=== PATIENT | female | born 1995 | race Caucasian/White ===

== ENCOUNTER 2017-02-17 07:30 | Inpatient (IN) | payer BC ==
--- NOTE | 2017-02-14 21:30 | Pre-op HX & Phy Repo 2 SIG ---
DATE OF ADMISSION: 02/17/2017 History of Present Illness: The patient is a 21-year-old female in overall stable health with intractable ulcerative colitis. She developed ulcerative colitis in 2008 at 13 years of age. She has been treated with all the available medications including steroids, which have caused side effects that she could not tolerate, mesalamine and in the past was recommended to have biologics, but has refused because she has been very sensitive to medications. She has had treatment by a shed hand and her last colonoscopy was in 04/2015 revealing the reason for the procedure, history of ulcerative colitis with rectal bleeding and chronic diarrhea and the findings were acute and chronic proctitis. The patient more recently was treated with budesonide, but stopped four months ago because of side effects similar to her previous prednisone. Her current medications include Lialda 1.2 grams four times a day, Bentyl p.r.n. cramping, Rowasa enemas and suppositories. She has been evaluated for surgery including creation of an ileoanal J-pouch, but she does not want a J-pouch reconstruction. She states that she has minimal sphincter control even with formed stool when her colitis has been somewhat controlled. She also wants to avoid a conventional ileostomy requiring that she wear an external appliance at all times. She has been having 10 to 12 stools per day with her flares, which she has repeatedly. She is scheduled to be admitted to undergo proctocolectomy with creation of a Dueñas type of Kock pouch continent ileostomy. She will undergo insertion of a dual lumen PICC line, bowel prep with concomitant intravenous hydration and preoperative intravenous antibiotics started the night before surgery and preoperative subcutaneous heparin. OPERATIONS: None. MEDICATIONS: Lialda, Bentyl, mesalamine enemas and suppositories. ALLERGIES TO MEDICATIONS: None. Review Of Systems: The patient is having regular menstrual periods. She is 0 para 0 AB 0. PHYSICAL EXAMINATION: General: The patient is 5 feet 3 inches and 140 pounds. [place] and will be examined upon arrival and dictated separately. She has recently been seen by a physician where she lives in [place], who has found that other than a mildly elevated white blood cell count of 14,000 and platelet count 505,000 with hemoglobin 13.8, she has no evidence of infection and the mild leukocytosis is likely from her ulcerative colitis. Her examination was satisfactory and she was cleared for having surgery. I have had a full discussion with the patient regarding the nature of her condition, the nature of the surgical options including proctocolectomy with Elin ileostomy, proctocolectomy with Dueñas continent ileostomy or a total colectomy with creation of ileoanal J-pouch, which she has refused. I have discussed the nature of the proctocolectomy with Dueñas pouch surgery including bleeding, infection, injury to adjacent structures or organs, complications that could arise from the Dueñas continent ileostomy requiring additional surgery, including slipped valve and fistula as well as other difficulties with intubation of her pouch or function of her pouch with the stoma. I will have another complete discussion in person when the patient arrives from out of state and all questions will be answered. Dago Mancuso M.D. DR: LISA JOB#: [id number] CC: SACHI
[~2017-02-17] VITALS: Ht 160 cm; Wt 63.5 kg
[2017-02-17 09:20] VITALS: BP 110/78
[2017-02-17] MEDS ORDERED: Heparin 2000 units/Ns 1000ml INJ PRN (10:30)
[2017-02-17] MEDS ORDERED: Lidocaine 1% Plain 30 ml INJ PRN (10:30)
[2017-02-17 10:31] LABS: BASOPHILS % (AUTO) 1.2 % (0.0-2.0); EOSINOPHILS % (AUTO) 2.2 % (0.0-3.0); LYMPHOCYTES % (AUTO) 13.7 % (20.0-45.0); MEAN CORPUSCULAR HEMOGLOBIN 27.8 PG (27.0-31.0); MEAN CORPUSCULAR HGB CONC 33.4 G/DL (32.0-36.0); MEAN CORPUSCULAR VOLUME 83 FL (80-99); MEAN PLATELET VOLUME 7.2 FL (6.5-10.1); MONOCYTES % (AUTO) 5.7 % (1.0-10.0); NEUTROPHILS % (AUTO) 77.2 % (45.0-75.0); PLATELET COUNT 494 K/UL (150-450); RED CELL DISTRIBUTION WIDTH 12.2 % (11.6-14.8); WHITE BLOOD COUNT 12.7 K/UL (4.8-10.8)
--- NOTE | 2017-02-17 10:35 | Anethesia Preoperative Eval ---
Anesthesia Pre-op PMH/ROS General Date of Evaluation: Feb 17, 2017 Time of Evaluation: 11:30 Anesthesiologist: Kaylee ASA Score: ASA 2 Mallampati Score Class I : Soft palate, uvula, fauces, pillars visible Class II: Soft palate, uvula, fauces visible Class III: Soft palate, base of uvula visible Class IV: Only hard plate visible Mallampati Classification: Class II Surgeon: Jamee Diagnosis: Intractible Ulcerative colitis Surgical Procedure: Proctocolectomy with Dueñas pouch Anesthesia History: none Allergies: Coded Allergies: NO KNOWN ALLERGIES (Verified Allergy, Unknown, 02/17/17) Medications: see eMAR Past Medical History Cardiovascular: Denies: HTN, CAD, RI, valve dz, arrhythmia, other Pulmonary: Denies: asthma, COPD, CARIDAD, other Gastrointestinal/Genitourinary: Denies: GERD, CRI, ESRD, other Neurologic/Psychiatric: Denies: dementia, CVA, depression/anxiety, TIA, other Endocrine: Denies: DM, hypothyroidism, steroids, other HEENT: Denies: cataract (L), cataract (R), glaucoma, [place] (L[place] (R), other Hematology/Immune: Denies: anemia, DVT, bleeding disorder, other Musculoskeletal/Integumentary: Denies: OA, RA, DJD, DDD, edema, other PMH Narrative: Ulcerative colitis PSxH Narrative: No prior surgery Anesthesia Pre-op Phys. Exam Physician Exam Constitutional: NAD Neurologic: CN 2-12 intact Cardiovascular: RRR, no M/R/G Respiratory: CTA Gastrointestinal: S/NT/ND Airway Exam Mallampati Score: Class II MO: full ROM: full Teeth: intact Anesthesia Pre-op A/P Labs Hematology Test 02/17/17 10:10 White Blood Count 12.7 K/UL (4.8-10.8) H Red Blood Count 5.00 M/UL (4.20-5.40) Hemoglobin 13.9 G/DL (12.0-16.0) Hematocrit 41.6 % (37.0-47.0) Mean Corpuscular Volume 83 FL (80-99) Mean Corpuscular Hemoglobin 27.8 PG (27.0-31.0) Mean Corpuscular Hemoglobin Concent 33.4 G/DL (32.0-36.0) Red Cell Distribution Width 12.2 % (11.6-14.8) Platelet Count 494 K/UL (150-450) H Mean Platelet Volume 7.2 FL (6.5-10.1) Neutrophils (%) (Auto) 77.2 % (45.0-75.0) H Lymphocytes (%) (Auto) 13.7 % (20.0-45.0) L Monocytes (%) (Auto) 5.7 % (1.0-10.0) Eosinophils (%) (Auto) 2.2 % (0.0-3.0) Basophils (%) (Auto) 1.2 % (0.0-2.0) Coagulation Test 02/17/17 10:10 Prothrombin Time Pending Prothromb Time International Ratio Pending Activated Partial Thromboplast Time Pending Chemistry Test 02/17/17 10:10 Sodium Level Pending Potassium Level Pending Chloride Level Pending Carbon Dioxide Level Pending Blood Urea Nitrogen Pending Creatinine Pending Estimat Glomerular Filtration Rate Pending Glucose Level Pending Calcium Level Pending Total Bilirubin Pending Aspartate Amino Transf (AST/SGOT) Pending Alanine Aminotransferase (ALT/SGPT) Pending Alkaline Phosphatase Pending Total Protein Pending Albumin Pending Globulin Pending Risk Assessment & Plan Assessment: Otherwise healthy female with h/o ulcerative colitis Plan: GETA Status Change Before Surgery: WOLFGANG Stevenson M.D. Feb 17, 2017 10:35
[2017-02-17 10:36] LABS: PROTHROMBIN TIME 10.7 SEC (9.30-11.50)
[2017-02-17 11:01] LABS: ALANINE AMINOTRANSFERASE 5 U/L (3-33); ALBUMIN/GLOBULIN RATIO 1.3 (1.0-2.7); ANION GAP 14 (5-15); ASPARTATE AMINO TRANSFERASE 16 U/L (5-40); CALCIUM 9.7 mg/dL (8.6-10.2); CARBON DIOXIDE 25 mEQ/L (20-30); CHLORIDE 100 mEQ/L (98-107); CREATININE 0.8 mg/dL (0.5-0.9); GLOMERULAR FILTRATION RATE > 60 mL/min (>60); HEMOLYSIS 6; POTASSIUM 3.9 mEQ/L (3.4-4.9); SODIUM 139 mEQ/L (135-145); TOTAL PROTEIN 7.9 g/dL (6.6-8.7)
[2017-02-17] MEDS: Neomycin Sulfate 500mg Tab ORAL SCH ×3 (12:16→20:05)
[2017-02-17] MEDS ORDERED: LORazepam 1mg tab ORAL ONE (12:30)
[2017-02-17 14:24] LABS: APPEARANCE,URINE CLEAR; KETONES,URINE 2+ (NEGATIVE); LEUKOCYTE ESTERASE ,URINE NEGATIVE (NEGATIVE); NITRITE,URINE NEGATIVE (NEGATIVE); PH,URINE 6 (4.5-8.0); PROTEIN,URINE NEGATIVE (NEGATIVE); UROBILINOGEN,URINE NORMAL MG/DL (0.0-1.0)
--- NOTE | 2017-02-17 14:39 | Diagnostic Imaging Report ---
Indication: PICC line placement Comparison: None A single view chest radiograph was obtained. Findings: Left PICC line is in good position. Tip is at the junction of SVC and right atrium. Cardiomediastinal appearance is within normal limits for age. Pulmonary vascularity is appropriate. The diaphragmatic contour is smooth and costophrenic angles are sharp. No pleural effusions are identified. The bones are unremarkable. Impression: PICC line in good position.
[2017-02-17 14:41] LABS: BACTERIA,URINE OCCASIONAL /HPF; RBC,URINE 0-2 /HPF (0 - 2); SQUAMOUS EPITHELIAL CELL,UR OCCASIONAL /LPF (NONE/OCC); WBC,URINE 0-2 /HPF (0 - 2)
--- NOTE | 2017-02-17 14:41 | Diagnostic Imaging Report ---
Indication: tank terminal gauger venous access Findings: After the indications, procedure, risks, complications, and alternatives of the procedure were explained, written informed consent was obtained. The left upper extremity was prepped with alcohol. All elements of maximal sterile barrier technique were followed including usage of a cap, mask, sterile gown, sterile gloves, hand hygiene and a large sterile sheet. Sonographic evaluation of the upper extremity was performed demonstrating a patent and compressible basilic vein. Access was obtained under real-time ultrasound guidance and digital image was saved and archived. An .018 wire was introduced. Needle exchanged for a 5 [place] peel-away sheath. Measurements were obtained. A 5 [place] dual-lumen Power PICC line catheter was cut to 40 cm and introduced over the wire. Peel-away sheath and wire were removed.Catheter was secured to the skin using 2-0 Prolene suture. Both ports aspirate and flush easily. Fluoroscopic Images show distal tip in the superior vena cava. Total fluoroscopic time 0.2 minutes Impression: Successful placement of an upper extremity PICC line catheter
--- NOTE | 2017-02-17 15:44 | General Progress Note ---
Progress Note Progress Note H&P dictated. Full discussion with patient and her mother about the surgery, indications, alternatives, options and risks. All questions answered. PICC line in place + bowel prep and IV hydration WBC lower than 1 month ago Hgb stable 13.9 albumin 4.5 Imp. Intractable Ulcerative Colitis Plan: Proctocolectomy with Dueñas Continent Ileostomy MARIAMA MEJIAS Feb 17, 2017 15:44
[2017-02-17 16:00] VITALS: BP 114/71
[2017-02-17] MEDS: Pantoprazole Inj IVP SCH (16:09)
[2017-02-17] MEDS: D5 1/2NS w/KCl 20mEq 1,000 ML IV SCH (18:20)
[2017-02-17] MEDS: LORazepam 1mg tab ORAL PRN (19:39)
[2017-02-17 20:00] VITALS: BP 112/75
[2017-02-17] MEDS ORDERED: Zolpidem 5mg tab ORAL PRN (21:00)
--- NOTE | 2017-02-17 23:15 | Pre-op HX & Phy Repo 2 SIG ---
DATE OF ADMISSION: 02/17/2017 History: The patient has now [place]. Please see previously dictated history. She states that recently her colitis symptoms have been reduced, which she experiences periodically. She states that she is feeling fairly well for surgery. She had an elevated white blood cell count 14,000 and today decreased to 12,500. PHYSICAL EXAMINATION: General: She is well developed and well nourished, 5 foot 3 inches, approximately 140 pounds. HEENT: Within normal limits. LUNGS: Clear. HEART: Regular rhythm. BREASTS: Without masses. ABDOMEN: Soft without tenderness or organomegaly. PELVIC: Negative per primary care physician recently. RECTAL: No evidence of prolapse or any abnormal condition of the perianal skin. EXTREMITIES: Without edema. Pulses 2+ femoral to pedal bilateral NEUROLOGIC: Physiologic. IMPRESSION: Intractable ulcerative colitis. Plan: Proctocolectomy with creation of a Dueñas type of Kock pouch continent ileostomy. Discussion: I have had a full detailed discussion with the patient and her mother regarding the nature of her condition, the nature of the surgery, indications, alternatives, options, and risks. She is not a candidate for the ileoanal J-pouch and wishes to avoid a conventional ileostomy with external appliance. I have described the nature of the proctocolectomy including all the drainage tubes that are going to be utilized and creation of the Dueñas pouch. I have discussed the risks including the general risks of surgery including bleeding, infection, injury to adjacent structures or organs, scarring, possibility of altered bladder function, a possibility of needing to repair the posterior vaginal wall, deep vein thrombosis despite prophylaxis, etc. I have also discussed the specific risks of the Dueñas continent ileostomy operation including the potential need for subsequent surgical revision for fistula or for slipped valve or for other complications involving the stoma or function of the pouch or intubation. I have answered all questions. The patient's hemoglobin was 13.9. Albumin 4.5. Platelet count slightly elevated at 494,000 and white count 12,700. All other parameters within normal limits. The patient and mother understand and feel I have answered all of their questions and agree to proceed as planned. The patient has undergone insertion of a dual lumen PICC line, will be getting a bowel prep and intravenous hydration. Dago Mancuso M.D. DR: LISA JOB#: [id number] CC: SACHI
[2017-02-18] VITALS (10 sets, daily range): BP systolic 103–120; BP diastolic 57–79
[2017-02-18] MEDS: D5 1/2NS w/KCl 20mEq 1,000 ML IV SCH (04:15)
[2017-02-18] MEDS ORDERED: Heparin 5000 units/ml inj SUBQ ONE (05:30)
[2017-02-18] MEDS: Ampicillin/Sulbactam Sod 3 GM in NS 110 ML IV SCH ×6 (05:31→23:43)
[2017-02-18] MEDS: LORazepam 1mg tab ORAL PRN ×2 (05:41→22:57)
[2017-02-18] MEDS: Dyna-Hex 2% Top Sol 2oz TOPIC SCH (06:18)
--- NOTE | 2017-02-18 06:54 | Pre-Procedure Note/Attestation ---
Pre-Procedure Note/Attestation Complete Prior to Procedure Planned Procedure: not applicable Procedure Narrative: proctocolectomy and creation of Dueñas Continent Ileostomy; gastrostomy Indications for Procedure Pre-Operative Diagnosis: intractable Ulcerative Colitis Attestation I attest that I discussed the nature of the procedure; its benefits; risks and complications; and alternatives (and the risks and benefits of such alternatives ), prior to the procedure, with the patient (or the patient's legal airport representative). I attest that, if there was a reasonable possibility of needing a blood transfusion, the patient (or the patient's legal airport representative) was given the [facility] standardized written summary, pursuant to the [place] Blood Safety Act ([place] Health and Safety Code # 1645, as amended). I attest that I re-evaluated the patient just prior to the surgery and that there has been no change in the patient's H&P, except as documented below:none MARIAMA MEJIAS Feb 18, 2017 06:54
[2017-02-18] MEDS ORDERED: Bacitracin 50000 Units Vial ONE ×2 (07:11→14:39)
[2017-02-18] MEDS ORDERED: NeoSporin Gu Irrig 1ml Amp IRRIG ONE ×2 (07:11→14:39)
[2017-02-18] MEDS ORDERED: Zemuron 50mg/5ml Inj IV ONE ×2 (07:30→07:50)
[2017-02-18] MEDS ORDERED: Morphine Sulfate 10mg/ml Inj ONE (07:30)
[2017-02-18] MEDS ORDERED: Etomidate 40mg/20ml Inj IV ONE (07:30)
[2017-02-18] MEDS ORDERED: Glycopyrrolate 0.2mg/ml 1ml Vial ONE ×2 (07:30→07:50)
[2017-02-18] MEDS ORDERED: Neostigmine 1mg/ml 10ml Inj ONE (07:30)
[2017-02-18] MEDS ORDERED: Midazolam 2mg/2ml Inj ONE (07:50)
[2017-02-18] MEDS ORDERED: fentaNYL 100 mcg/2 mL IV ONE (07:50)
[2017-02-18] MEDS ORDERED: Hydromorphone 0.5mg/0.5ml inj ONE (07:50)
[2017-02-18] MEDS ORDERED: NS Irrig 1000ml ONE (07:50)
[2017-02-18] MEDS ORDERED: Propofol 1,000mg/ 100ml btl IV ONE (07:50)
[2017-02-18] MEDS ORDERED: LR 1000ml ONE (07:50)
[2017-02-18] MEDS ORDERED: Sterile Water Irrig 1000ml IRRIG ONE (07:50)
[2017-02-18] MEDS: Pantoprazole Inj IVP SCH (09:00)
--- NOTE | 2017-02-18 09:13 | Immediate Post-Op Evaluation ---
Immediate Post-Op Evalulation Immediate Post-Op Evalulation Procedure: Proctocolectomy, Dueñas pouch Date of Evaluation: Feb 18, 2017 Time of Evaluation: 14:50 IV Fluids: 5700 Estimated Blood Loss: 700 Urinary Output: 1050 Blood Pressure Systolic: 103 Blood Pressure Diastolic: 57 Pulse Rate: 91 Respiratory Rate: 13 O2 Sat by Pulse Oximetry: 100 Temperature (Fahrenheit): 98.2 Pain Score (1-10): 0 Nausea: No Vomiting: No Complications No complication Patient Status: reacts, patent, extubated, none Hydration Status: adequate Drug: Unasyn & Flagyl Given Within 1 Hr of Incision: Yes Time Given: 07:00 WOLFGANG PORTILLO M.D. Feb 18, 2017 09:13
[2017-02-18] MEDS ORDERED: Surgicel 4in x 8in TOPIC ONE (10:39)
[2017-02-18 10:59] LABS: MEAN CORPUSCULAR HEMOGLOBIN 27.3 PG (27.0-31.0); MEAN CORPUSCULAR HGB CONC 32.7 G/DL (32.0-36.0); MEAN CORPUSCULAR VOLUME 84 FL (80-99); MEAN PLATELET VOLUME 7.1 FL (6.5-10.1); PLATELET COUNT 332 K/UL (150-450)
[2017-02-18 11:06] LABS: WHITE BLOOD COUNT 28.2 K/UL (4.8-10.8)
[2017-02-18 11:46] LABS: BAND NEUTROPHILS % (MANUAL) 7 % (0-8); BASOPHILS % (MANUAL) 0 % (0-2); EOSINOPHILS % (MANUAL) 0 % (0-3); LYMPHOCYTES % (MANUAL) 6 % (20-45); NEUTROPHILS % (MANUAL) 82 % (45-75); PLATELET ESTIMATE ADEQUATE; PLATELET MORPHOLOGY NORMAL; TOTAL CELLS COUNTED 100
[2017-02-18] MEDS ORDERED: Ampicillin/Sulbactam Sod 3 GM in NS 110 ML IV SCH (12:00)
[2017-02-18] MEDS ORDERED: LR 1000ml 1,000 ML IVLG SCH (13:27)
[2017-02-18] MEDS ORDERED: Meperidine 25mg/0.5ml Inj (FOR RIGORS ONLY) IV PRN (13:30)
[2017-02-18] MEDS ORDERED: LORazepam Inj 2mg/ml 1ml IV PRN (13:30)
[2017-02-18] MEDS ORDERED: DiphenhydrAMINE 50mg/ml Inj IVP PRN ×2 (13:30→14:45)
[2017-02-18] MEDS ORDERED: Hydromorphone 0.5mg/0.5ml inj IVP PRN (13:30)
[2017-02-18] MEDS ORDERED: Rate Change PCA 1 Each MISC PRN (14:45)
[2017-02-18] MEDS ORDERED: Naloxone 0.4mg/ml Inj IVP PRN (14:45)
[2017-02-18] MEDS ORDERED: Acetaminophen 650mg/20.3ml GT PRN (14:45)
[2017-02-18] MEDS ORDERED: LORazepam 1mg tab SL PRN ×2 (14:45)
--- NOTE | 2017-02-18 14:49 | Brief Operative Note ---
Immediate Post Operative Note Operative Note Pre-op Diagnosis: intractable Ulcerative Colitis Procedure: proctocolectomy and Dueñas Continent Ileostomy Post-op Diagnosis: same Post-op Diagnosis: same as pre-op Findings: consistent w/pre-op dx studies Surgeon: valerio Recreation Leader: jarrett Anesthesiologist: quynh Specimen: yes - colon, rectum and anus; small bowel trimmings Complications: none Condition: stable Fluids: see anesthesia record Estimated Blood Loss: volume - 700ml Drains: other - BRYANT x 2 to perineum; 28 Menezes to Dueñas pouch; 1/4 inch cadence Implant(s) used?: No MARIAMA MEJIAS Feb 18, 2017 14:49
[2017-02-18] MEDS ORDERED: PCA HYDROmorphone 1mg/ml 30 ML IV PRN (14:55)
[2017-02-18] MEDS ORDERED: PCA Education Pamphlet MISC ONE (15:00)
--- NOTE | 2017-02-18 16:29 | General Progress Note ---
Progress Note Progress Note sleepy but arousable. 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 MARIAMA Isaac Feb 18, 2017 16:29
[2017-02-18] MEDS: D5 1/4NS w/KCl 20mEq 1,000 ML IV SCH (17:17)
[2017-02-18] MEDS: PCA shift volume MISC SCH (19:20)
[2017-02-18] MEDS ORDERED: Metoclopramide 10mg/2ml Inj IVP ONE (20:30)
--- NOTE | 2017-02-19 00:31 | Operative Note - Dictated ---
DATE OF OPERATION: 02/18/2017 SURGEON: Dago Mancuso M.D. HOOP PUNCH OPERATOR HELPER SURGEON: Jarertt Duckworth M.D. ANESTHESIOLOGIST: Armando Page M.D. TYPE OF ANESTHESIA: General endotracheal. PREOPERATIVE DIAGNOSIS: Intractable ulcerative colitis. POSTOPERATIVE DIAGNOSIS: Intractable ulcerative colitis. Operation Performed: Proctocolectomy with creation of a Dueñas type of Kock pouch continent ileostomy. Description Of Procedure: The patient was taken to the operating room and under general endotracheal anesthesia with sequential compression device stockings and Menezes catheter in place, having received preoperative intravenous antibiotics and subcutaneous heparin, the patient was prepped and draped in lithotomy position using Dino stirrups and with a GelPad under the sacrum. A midline incision was made from just above the umbilicus to the pubis, ultimately extended into the midepigastrium. Hemostasis was achieved with cautery. Abdominal evaluation revealed normal liver and collapsed gallbladder without palpable stones. Spleen was normal. Kidneys normal to palpation as was pancreas. Uterus, tubes, and ovaries were within normal limits. The small bowel was abundant and completely normal. The colon showed signs of chronic inflammation from her ulcerative colitis. The colon was mobilized from its attachments starting at the cecum taking down the hepatic and splenic flexures using cautery, some large clips, and silk ties, protecting the duodenum and avoiding ureters and bladder. The omentum was resected with the specimen. The lesser sac was entered to facilitate the dissection. The left colon was mobilized along the line of Toldt and then the terminal ileum was divided with the MAURI stapling device and then the mesentery serially clamped using transillumination ligating with #0 silk, doubly ligating the major vessels proximally. At the rectosigmoid, the bowel was again divided with the MAURI stapling device and then the mesentery divided staying close to the wall of the colon and rectum dissecting in this presacral fascia down to the coccyx. Lateral stalks were divided using clips and ties as appropriate. The peritoneum was incised under the uterus to further mobilize the rectum. Then I went below and with a pursestring suture in the anus and a vertically oriented elliptical incision using cautery for hemostasis, an intersphincteric dissection was performed and the anus and rectum with the remaining colon was removed. The field was irrigated with antibiotic solution. Hemostasis was secured, although with the chronic inflammation, there was significant blood loss. Total blood loss for the surgery 700 mL. No blood replaced. Through separate stab incisions to the right and left side, 19 mm round Marcus drains were placed into the presacral hollow and sutured to the skin with 2-0 silk sutures. Then, the perineum was closed in multiple layers using #0 and 2-0 Vicryl and the skin closed with interrupted 2-0 nylon vertical mattress sutures. A dry sterile dressing was applied and the patient was taken out of lithotomy position carefully protecting the sterile field. Throughout the operation, antibiotic soaked laps were used to protect the abdominal wall and there were frequent changes of gloves and gowns. Now the pelvic peritoneum was closed with continuous 2-0 Vicryl suture again avoiding the ureters. The stapled end of the terminal ileum was imbricated with interrupted 3-0 silk and 12 cm proximal marked for the collar segment. 15cm proximal was marked for the pouch and the 2 adjacent 15 cm long loops of small bowel were placed [id number]. With appropriately located enterotomies and using the MAURI 55 with multiple applications, a stapled ileal reservoir was created. At the junction of the afferent bowel and the pouch, a 2-0 chromic marking suture was placed and 12 cm proximal marked for the valve segment. A 2 fingerbreadth mesenteric hiatus created at this point ligating vessels with 3-0 silk. The abdominal wall thickness measured 4 cm and the appropriate length access segment was measured and marked and the bowel divided with a TA-30 proximally and distally left open to become the new stoma. The mesentery was divided ligating with 3-0 silk. The proximal staple line was imbricated with 3-0 silk. Now attention was directed towards creating the nipple valve. The peritoneum on each side of the valve segment mesentery was stripped and the serosa scarified with cautery. Then with gradual intussusception a 5.5 cm long nipple valve was created. Two applications of the PI 55 stapling device with 4.8 mm william were placed 90 degrees away from the mesentery. 3-0 silk sutures were placed on each side of the access segment to the pouch on each side of its mesentery. A third application of the PI 55 stapling device was placed to staple the valve to the anterior pouch wall. Additional 3-0 silk placed between the access segment and the pouch. The afferent bowel was placed [id number] with the enterotomy in the pouch and a hand-sewn anastomosis was created with a very short blind end, a posterior outer layer with interrupted 3-0 silk, then the afferent bowel opened, and full-thickness locking 2-0 chromic sutures placed posteriorly carried anteriorly as Luis suture. Another layer of 3-0 silk placed over that. A generous 2 fingerbreadth anastomosis was created. Now the end of the collar was brought through the mesenteric hiatus at the junction of the valve and access segment and the collar was sutured to the access segment, to itself and to the pouch with multiple interrupted 3-0 silk. A 28-Tajik Menezes was then introduced through the stoma into the pouch and the afferent bowel manually occluded. The pouch was distended with 120 mL of saline. There was no evidence of any extravasation. Upon removing the catheter, the pouch was continent. The catheter was reintroduced and the pouch decompressed. A Cast suction also passed readily with some constriction from the collar as appropriate. At a previously marked location low in the right lower quadrant, a narrow 2.5 cm long ellipse of skin was excised in transverse orientation and with a cruciate incision in the rectus fascia, a 2-fingerbreadth abdominal wall hiatus was created. The posterior pouch and collar were sutured to the peritoneum with 3-0 Vicryl sutures. The access segment with its mesentery was brought through the abdominal wall and the anterior pouch sutured to the peritoneum with 3-0 Vicryl. The 28-Tajik Menezes was positioned in the pouch into the apex. Now the access segment was placed on stretch and redundancy was excised and the stoma primarily matured with continuous 2-0 chromic locking sutures starting at the 3 and 9 o'clock positions. A very satisfactory stoma was achieved and the access segment was short and taut. The pouch lay nicely in the pelvis and the catheter was positioned appropriately. The catheter was marked at the level of the stoma with a 3-0 silk and then sutured to the skin with 2 sutures of 2-0 silk. It was flushed and connected to a gravity drainage bag. The operative field was carefully inspected throughout the field of dissection and hemostasis was satisfactory. In view of all the dissection and complex operation, I felt decompression with a gastrostomy was indicated. Through a separate stab incision in the left upper quadrant, an 18-Tajik Menezes catheter was brought through the abdominal wall and placed into the stomach anterior wall greater curve between 2 concentric 2-0 chromic pursestring sutures with the balloon inflated and positioned in the stomach and the stomach then sutured to the anterior abdominal wall with multiple interrupted 3-0 silk sutures. The catheter was sutured to the skin with a 2-0 silk and it was then flushed and connected to a gravity drainage bag. The midline incision was then closed in 1 layer with continuous #1 Prolene starting at both ends and inverting the knots. Subcutaneous tissues were again irrigated with antibiotic solution and skin closed with william. Dry sterile dressings were applied. Final sponge and needle counts were correct. The patient tolerated the procedure well and left the operating room in good condition. Dago Mancuso M.D. DR: Eliz JOB#: [id number] CC: SACHI
[2017-02-19 00:32] VITALS: BP 108/64
[2017-02-19] MEDS: D5 1/4NS w/KCl 20mEq 1,000 ML IV SCH ×3 (03:30→16:38)
[2017-02-19 04:25] VITALS: BP 98/63
[2017-02-19] MEDS: Ampicillin/Sulbactam Sod 3 GM in NS 110 ML IV SCH ×3 (05:07→17:02)
[2017-02-19] MEDS: LORazepam 1mg tab ORAL PRN ×4 (05:07→21:39)
[2017-02-19 05:52] LABS: MEAN CORPUSCULAR HEMOGLOBIN 27.9 PG (27.0-31.0); MEAN CORPUSCULAR HGB CONC 33.5 G/DL (32.0-36.0); MEAN CORPUSCULAR VOLUME 83 FL (80-99); MEAN PLATELET VOLUME 6.8 FL (6.5-10.1); PLATELET COUNT 338 K/UL (150-450); RED BLOOD COUNT 3.35 M/UL (4.20-5.40); RED CELL DISTRIBUTION WIDTH 12.2 % (11.6-14.8); WHITE BLOOD COUNT 19.4 K/UL (4.8-10.8)
[2017-02-19 06:23] LABS: ANION GAP 6 (5-15); CALCIUM 7.9 mg/dL (8.6-10.2); CARBON DIOXIDE 28 mEQ/L (20-30); CHLORIDE 99 mEQ/L (98-107); CREATININE 0.6 mg/dL (0.5-0.9); GLOMERULAR FILTRATION RATE > 60 mL/min (>60); HEMOLYSIS 3; SODIUM 133 mEQ/L (135-145)
[2017-02-19 06:39] LABS: HEMOLYSIS 0; IRON 14 ug/dL (37-145); TOTAL IRON BINDING CAPACITY 194 ug/dL (250-400)
[2017-02-19] MEDS: PCA shift volume MISC SCH ×2 (07:00→19:21)
--- NOTE | 2017-02-19 07:01 | 48 Hour Post Anesthesia Eval ---
Post Anesthesia Evaluation Procedure: Proctocolectomy, Dueñas pouch Date of Evaluation: Feb 19, 2017 Time of Evaluation: 06:36 Blood Pressure Systolic: 98 0: 63 Pulse Rate: 116 Respiratory Rate: 17 Temperature (Fahrenheit): 100.8 O2 Sat by Pulse Oximetry: 98 Airway: patent Nausea: No Vomiting: No Pain Intensity: 3 Hydration Status: adequate Cardiopulmonary Status: Stable Mental Status/LOC: patient returned to baseline Follow-up Care/Observations: 0 Post-Anesthesia Complications: 0 Follow-up care needed: N/A Robert Bunch MD Feb 19, 2017 07:01
[2017-02-19 08:00] VITALS: BP 101/63
[2017-02-19] MEDS: Pantoprazole Inj IVP SCH (08:14)
[2017-02-19] MEDS: Dyna-Hex 2% Top Sol 2oz TOPIC SCH (08:19)
--- NOTE | 2017-02-19 08:33 | General Progress Note ---
Progress Note Progress Note Temp 101.8 P 116 c/o pain with movement despite dilaudid INBOUND SALES ADVISOR. chest - decreased expansion cor - reg rhythm Abdomen mildly distended, soft, incision clean, stoma pink. [place] - scant serosang All extremities with normal strength and sensation Perineum incision clean, BRYANT drains intact Overnight 12 hours: urine 1600 Gastrostomy 100 BCIR ileo - scant serosang JPs 100 + 15 WBC 19,400 Hgb 9.3 BUN 3 Cr 0.6 Serum iron 14 (37-145) B12 269 (211-946) Imp. Ileus Atelectasis with fever Anemia with pre-existing low iron and B12 levels Pain Plan: Add Toradol to INBOUND SALES ADVISOR Bedrest today with frequent moving and leg exercising; continue SCDs Venofer 100mg IV daily; B12 1000mcg IM today f/u labs pulmonary toilet MARIAMA MEJIAS Feb 19, 2017 08:33
[2017-02-19] MEDS ORDERED: Ketorolac 30mg Inj IV ONE (08:45)
[2017-02-19] MEDS ORDERED: Naloxone 0.4mg/ml Inj IVP PRN (09:30)
[2017-02-19] MEDS ORDERED: PCA HYDROmorphone 1mg/ml 30 ML IV PRN (09:30)
[2017-02-19] MEDS ORDERED: DiphenhydrAMINE 50mg/ml Inj IVP PRN (09:30)
[2017-02-19] MEDS ORDERED: Rate Change PCA 1 Each MISC PRN (09:30)
[2017-02-19] MEDS ORDERED: Ketorolac 30mg Inj IV PRN (09:45)
[2017-02-19 09:52] LABS: BAND NEUTROPHILS % (MANUAL) 3 % (0-8); BASOPHILS % (MANUAL) 0 % (0-2); EOSINOPHILS % (MANUAL) 0 % (0-3); LYMPHOCYTES % (MANUAL) 10 % (20-45); NEUTROPHILS % (MANUAL) 78 % (45-75); PLATELET ESTIMATE ADEQUATE; PLATELET MORPHOLOGY NORMAL; TOTAL CELLS COUNTED 100
[2017-02-19] MEDS ORDERED: Vitamin B12 1000mcg/ml Inj IM ONE (10:00)
[2017-02-19 12:00] VITALS: BP_SYST 116; BP_SYST 128; BP_DIAS 62; BP_DIAS 65
[2017-02-19 16:00] VITALS: BP 113/63
[2017-02-19] MEDS ORDERED: NS 275ml ONE (17:43)
[2017-02-19] MEDS ORDERED: NS Irrig 1000ml ONE (17:43)
[2017-02-19] MEDS ORDERED: Tubing IV Secondary IV ONE (17:43)
[2017-02-19 20:13] VITALS: BP 101/64
[2017-02-19] MEDS: Iron Sucrose 100 MG in NS 55 ML IV SCH (21:38)
[2017-02-20 00:27] VITALS: BP 102/61
[2017-02-20] MEDS: Metoclopramide 10mg/2ml Inj IVP PRN (01:48)
[2017-02-20] MEDS: D5 1/4NS w/KCl 20mEq 1,000 ML IV SCH ×3 (03:00→18:58)
[2017-02-20 04:00] VITALS: BP 106/79
[2017-02-20 05:27] LABS: BASOPHILS % (AUTO) 0.9 % (0.0-2.0); EOSINOPHILS % (AUTO) 0.7 % (0.0-3.0); LYMPHOCYTES % (AUTO) 9.9 % (20.0-45.0); MEAN CORPUSCULAR HEMOGLOBIN 27.9 PG (27.0-31.0); MEAN CORPUSCULAR HGB CONC 33.2 G/DL (32.0-36.0); MEAN CORPUSCULAR VOLUME 84 FL (80-99); MONOCYTES % (AUTO) 10.5 % (1.0-10.0); PLATELET COUNT 298 K/UL (150-450); RED BLOOD COUNT 3.07 M/UL (4.20-5.40); RED CELL DISTRIBUTION WIDTH 12.8 % (11.6-14.8); WHITE BLOOD COUNT 15.2 K/UL (4.8-10.8)
[2017-02-20 05:30] LABS: ANION GAP 5 (5-15); CARBON DIOXIDE 29 mEQ/L (20-30); CHLORIDE 101 mEQ/L (98-107); CREATININE 0.6 mg/dL (0.5-0.9); GLOMERULAR FILTRATION RATE > 60 mL/min (>60); HEMOLYSIS 0; SODIUM 135 mEQ/L (135-145)
[2017-02-20] MEDS: Ampicillin/Sulbactam Sod 3 GM in NS 110 ML IV SCH ×5 (05:56→17:45)
[2017-02-20] MEDS: PCA shift volume MISC SCH ×2 (07:22→19:00)
[2017-02-20 08:00] VITALS: BP 99/56
--- NOTE | 2017-02-20 08:28 | General Progress Note ---
Progress Note Progress Note Afebrile x 24 hours. Tachycardia decreased. Still c/o occasional hiccups and nausea chest - clear with decreased expansion Abdomen mildly distended, soft, incision clean, stoma pink, cadence-scant Urine 2900 Gastrostomy 285 (bilious) BCIR ileo scant serosang JPs 93+38 WBC down 15,200 Hgb down 8.6 - getting Venofer BMP - wnl Imp. Ileus Atelectasis anemia Plan: d/c basal continuous infusion of UNDERCOLLAR MAKER mobilize/ambulate BID f/u CBC, CMP - may need TPN MARIAMA MEJIAS Feb 20, 2017 08:28
[2017-02-20] MEDS ORDERED: Naloxone 0.4mg/ml Inj IVP PRN (09:00)
[2017-02-20] MEDS ORDERED: DiphenhydrAMINE 50mg/ml Inj IVP PRN (09:00)
[2017-02-20] MEDS ORDERED: Rate Change PCA 1 Each MISC PRN (09:00)
[2017-02-20] MEDS ORDERED: PCA HYDROmorphone 1mg/ml 30 ML IV PRN (09:00)
[2017-02-20] MEDS: Dyna-Hex 2% Top Sol 2oz TOPIC SCH (09:49)
[2017-02-20] MEDS: Pantoprazole Inj IVP SCH (09:50)
[2017-02-20 12:00] VITALS: BP 109/64
[2017-02-20 16:00] VITALS: BP 102/61
[2017-02-20 20:00] VITALS: BP 95/60
[2017-02-20] MEDS: Iron Sucrose 100 MG in NS 55 ML IV SCH (21:04)
[2017-02-21] VITALS: BP 96/61
[2017-02-21] MEDS: Ampicillin/Sulbactam Sod 3 GM in NS 110 ML IV SCH ×4 (00:02→18:19)
[2017-02-21 04:00] VITALS: BP 98/65
[2017-02-21 04:39] LABS: BASOPHILS % (AUTO) 0.9 % (0.0-2.0); EOSINOPHILS % (AUTO) 3.8 % (0.0-3.0); LYMPHOCYTES % (AUTO) 15.1 % (20.0-45.0); MEAN CORPUSCULAR HEMOGLOBIN 27.1 PG (27.0-31.0); MEAN CORPUSCULAR HGB CONC 32.2 G/DL (32.0-36.0); MEAN CORPUSCULAR VOLUME 84 FL (80-99); MEAN PLATELET VOLUME 6.7 FL (6.5-10.1); MONOCYTES % (AUTO) 8.7 % (1.0-10.0); NEUTROPHILS % (AUTO) 71.5 % (45.0-75.0); PLATELET COUNT 361 K/UL (150-450); RED BLOOD COUNT 3.21 M/UL (4.20-5.40); RED CELL DISTRIBUTION WIDTH 12.3 % (11.6-14.8); WHITE BLOOD COUNT 14.4 K/UL (4.8-10.8)
[2017-02-21 05:32] LABS: ALANINE AMINOTRANSFERASE 12 U/L (3-33); ANION GAP 6 (5-15); ASPARTATE AMINO TRANSFERASE 23 U/L (5-40); CALCIUM 8.3 mg/dL (8.6-10.2); CARBON DIOXIDE 29 mEQ/L (20-30); CHLORIDE 102 mEQ/L (98-107); CREATININE 0.5 mg/dL (0.5-0.9); GLOMERULAR FILTRATION RATE > 60 mL/min (>60); HEMOLYSIS 2; POTASSIUM 3.9 mEQ/L (3.4-4.9); SODIUM 137 mEQ/L (135-145); TOTAL PROTEIN 5.2 g/dL (6.6-8.7)
[2017-02-21] MEDS: PCA shift volume MISC SCH ×2 (07:15→19:00)
[2017-02-21] MEDS: D5 1/4NS w/KCl 20mEq 1,000 ML IV SCH ×2 (07:48→21:08)
[2017-02-21] MEDS: LORazepam 1mg tab ORAL PRN ×3 (07:48→21:57)
[2017-02-21] MEDS: Dyna-Hex 2% Top Sol 2oz TOPIC SCH (07:53)
[2017-02-21] MEDS: Pantoprazole Inj IVP SCH (07:59)
[2017-02-21 08:00] VITALS: BP 100/61
[2017-02-21] MEDS ORDERED: PCA HYDROmorphone 1mg/ml 30 ML IV PRN (09:00)
[2017-02-21] MEDS ORDERED: DiphenhydrAMINE 50mg/ml Inj IVP PRN (09:00)
[2017-02-21] MEDS ORDERED: Dextrose 10% 1,000 ML IV PRN (09:00)
[2017-02-21] MEDS ORDERED: Rate Change PCA 1 Each MISC PRN (09:00)
[2017-02-21] MEDS ORDERED: Naloxone 0.4mg/ml Inj IVP PRN (09:00)
[2017-02-21] MEDS ORDERED: Phytonadione 10 mg/mL 1ml amp SUBQ SCH (09:00)
--- NOTE | 2017-02-21 09:01 | General Progress Note ---
Progress Note Progress Note AVSS much more awake and alert. Ambulated in hallways early this morning Abdomen soft, mildly distended, healing nicely Perineum incision clean Urine 4600 Gastrostomy 220 BCIR ileo serosang only small amount BRYANT drains: 39+ 44 WBC down 14,400 Hgb 8.7 (stable) albumin 2.7 Imp: Ileus Malnutrition Plan: Start TPN continue NPO and urinary Menezes catheter f/u labs MARIAMA MEJIAS Feb 21, 2017 09:01
[2017-02-21] MEDS ORDERED: D5 1/4NS w/KCl 20mEq 1,000 ML IV SCH (09:30)
[2017-02-21 12:00] VITALS: BP 109/69
[2017-02-21 16:00] VITALS: BP 112/61
[2017-02-21] MEDS ORDERED: NS Irrig 1000ml ONE (17:11)
[2017-02-21] MEDS ORDERED: Tubing IV Secondary IV ONE (17:11)
[2017-02-21] MEDS: NovoLOG Insulin Flexpen SUBQ SCH (18:00)
[2017-02-21 20:00] VITALS: BP 90/62
[2017-02-21] MEDS ORDERED: Tpn 2,000 ML IV SCH (21:00)
[2017-02-21] MEDS ORDERED: TPN IV SCH (21:00)
[2017-02-21] MEDS ORDERED: Fat Emulsion Iv 20% 250 ML IV SCH (21:00)
[2017-02-21] MEDS: Iron Sucrose 100 MG in NS 55 ML IV SCH (21:06)
[2017-02-21] MEDS: Phytonadione 10 mg/mL 1ml amp SUBQ SCH (21:07)
[2017-02-21] MEDS: Fat Emulsion Iv 20% 216 ML in Tpn 1,680 ML IV SCH (21:10)
[2017-02-22 00:40] VITALS: BP 94/61
[2017-02-22] MEDS: Ampicillin/Sulbactam Sod 3 GM in NS 110 ML IV SCH ×5 (00:57→23:48)
[2017-02-22 04:00] VITALS: BP 100/65
[2017-02-22] MEDS: NovoLOG Insulin Flexpen SUBQ SCH ×4 (06:07→17:42)
[2017-02-22 06:24] LABS: BASOPHILS % (AUTO) 1.4 % (0.0-2.0); EOSINOPHILS % (AUTO) 11.3 % (0.0-3.0); LYMPHOCYTES % (AUTO) 19.1 % (20.0-45.0); MEAN CORPUSCULAR HEMOGLOBIN 27.1 PG (27.0-31.0); MEAN CORPUSCULAR HGB CONC 32.2 G/DL (32.0-36.0); MEAN CORPUSCULAR VOLUME 84 FL (80-99); MEAN PLATELET VOLUME 6.4 FL (6.5-10.1); NEUTROPHILS % (AUTO) 59.2 % (45.0-75.0); PLATELET COUNT 430 K/UL (150-450); RED BLOOD COUNT 3.27 M/UL (4.20-5.40); RED CELL DISTRIBUTION WIDTH 12.6 % (11.6-14.8); WHITE BLOOD COUNT 12.3 K/UL (4.8-10.8)
[2017-02-22 06:39] LABS: ANION GAP 10 (5-15); CALCIUM 8.5 mg/dL (8.6-10.2); CARBON DIOXIDE 29 mEQ/L (20-30); CHLORIDE 102 mEQ/L (98-107); CREATININE 0.6 mg/dL (0.5-0.9); GLOMERULAR FILTRATION RATE > 60 mL/min (>60); HEMOLYSIS 4; MAGNESIUM 1.8 mg/dL (1.7-2.5); PHOSPHORUS 2.5 mg/dL (2.5-4.8); POTASSIUM 3.6 mEQ/L (3.4-4.9); SODIUM 141 mEQ/L (135-145)
[2017-02-22] MEDS: PCA shift volume MISC SCH ×2 (07:00→19:28)
[2017-02-22 08:00] VITALS: BP 94/58
[2017-02-22] MEDS: Dyna-Hex 2% Top Sol 2oz TOPIC SCH (08:06)
[2017-02-22] MEDS: Pantoprazole Inj IVP SCH (08:07)
[2017-02-22] MEDS ORDERED: Naloxone 0.4mg/ml Inj IVP PRN ×2 (09:06→10:15)
[2017-02-22] MEDS ORDERED: Rate Change PCA 1 Each MISC PRN ×2 (09:15→10:15)
--- NOTE | 2017-02-22 09:22 | General Progress Note ---
Progress Note Progress Note AVSS with intermittent tachycardia and incisional pain. Ambulating with walker Abdomen soft, mild distention, healing nicely Perineum healing nicely Urine 4350 Gastrostomy 590 BCIR ileo 20 serosang BRYANT drains: 35+18 WBC down 12.300 (same as pre-op) Hgb up 8.9 BMP - wnl P/MG - wnl Imp. Persistent ileus Plan: Started on TPN last night Continue MARIAMA Acosta Feb 22, 2017 09:22
[2017-02-22] MEDS ORDERED: DiphenhydrAMINE 50mg/ml Inj IVP PRN ×2 (10:15→15:00)
[2017-02-22] MEDS ORDERED: PCA Morphine 1mg/ml 30 ML IV PRN (10:15)
[2017-02-22] MEDS ORDERED: Morphine Sulfate 2mg/ml Inj IVP PRN (10:15)
[2017-02-22] MEDS ORDERED: PCA Education Pamphlet MISC ONE (10:15)
[2017-02-22] MEDS ORDERED: Morphine Sulfate 4mg/ml Inj SUBQ PRN (10:15)
[2017-02-22] MEDS: Ketorolac 30mg Inj IV PRN ×2 (10:27→23:48)
[2017-02-22] MEDS: LORazepam 1mg tab ORAL PRN ×2 (11:47→18:33)
[2017-02-22 12:00] VITALS: BP 104/68
[2017-02-22 16:00] VITALS: BP 89/53
[2017-02-22] MEDS: Metoclopramide 10mg/2ml Inj IVP PRN (17:38)
[2017-02-22] MEDS ORDERED: PCA shift volume MISC SCH (19:00)
[2017-02-22 20:06] VITALS: BP 108/71
[2017-02-22] MEDS: D5 1/4NS w/KCl 20mEq 1,000 ML IV SCH (21:28)
[2017-02-22] MEDS: Iron Sucrose 100 MG in NS 55 ML IV SCH (21:28)
[2017-02-22] MEDS: Fat Emulsion Iv 20% 216 ML in Tpn 1,680 ML IV SCH (21:29)
[2017-02-23] VITALS (7 sets, daily range): BP systolic 100–120; BP diastolic 62–75
[2017-02-23] MEDS: NovoLOG Insulin Flexpen SUBQ SCH ×4 (05:57→18:51)
[2017-02-23] MEDS: Ampicillin/Sulbactam Sod 3 GM in NS 110 ML IV SCH ×3 (05:57→18:06)
[2017-02-23] MEDS: Ketorolac 30mg Inj IV PRN ×2 (06:46→12:33)
[2017-02-23] MEDS: PCA shift volume MISC SCH ×2 (07:19→19:00)
[2017-02-23] MEDS ORDERED: PCA HYDROmorphone 1mg/ml 30 ML IV PRN (09:00)
[2017-02-23] MEDS ORDERED: Ketorolac 30mg Inj IV PRN (09:00)
[2017-02-23] MEDS: Metoclopramide 10mg/2ml Inj IVP PRN (09:07)
[2017-02-23] MEDS: Pantoprazole Inj IVP SCH (09:07)
[2017-02-23] MEDS: Dyna-Hex 2% Top Sol 2oz TOPIC SCH (09:07)
[2017-02-23] MEDS ORDERED: Tubing IV Secondary IV ONE (09:52)
[2017-02-23] MEDS ORDERED: NS Irrig 1000ml ONE (09:52)
[2017-02-23] MEDS ORDERED: NS 500ML IV ONE (09:52)
[2017-02-23] MEDS ORDERED: Naloxone 0.4mg/ml Inj IVP PRN (11:00)
[2017-02-23] MEDS ORDERED: PCA Morphine 1mg/ml 30 ML IV PRN (11:00)
[2017-02-23] MEDS ORDERED: Rate Change PCA 1 Each MISC PRN (11:00)
--- NOTE | 2017-02-23 11:03 | General Progress Note ---
Progress Note Progress Note AVSS Able to ambulate freely in hallways Abdomen soft, healing nicely Urine 1800 Gastrostomy 720 bilious BCIR ileo scant but this AM bilious effluent in drainage bag JPs 20+10 - drain removed x1 Imp. Slowly resolving ileus Plan: Continue NPO and TPN continue Menezes in view of proctectomy MARIAMA MEJIAS Feb 23, 2017 11:03
[2017-02-23] MEDS ORDERED: DiphenhydrAMINE 50mg/ml Inj IVP PRN (12:00)
[2017-02-23] MEDS ORDERED: Morphine Sulfate 2mg/ml Inj IVP PRN (12:00)
[2017-02-23] MEDS ORDERED: Morphine Sulfate 4mg/ml Inj SUBQ PRN (13:00)
[2017-02-23] MEDS ORDERED: LORazepam 1mg tab SL PRN ×2 (15:00→21:00)
[2017-02-23] MEDS: D5 1/4NS w/KCl 20mEq 1,000 ML IV SCH (21:00)
[2017-02-23] MEDS: Fat Emulsion Iv 20% 216 ML in Tpn 1,680 ML IV SCH (21:00)
[2017-02-23] MEDS: Iron Sucrose 100 MG in NS 55 ML IV SCH (21:00)
[2017-02-24] VITALS: BP 108/70
[2017-02-24 04:00] VITALS: BP 109/71
[2017-02-24] MEDS: Ketorolac 30mg Inj IV PRN ×2 (04:34→13:29)
[2017-02-24] MEDS: NovoLOG Insulin Flexpen SUBQ SCH ×4 (06:00→18:20)
[2017-02-24] MEDS: Ampicillin/Sulbactam Sod 3 GM in NS 110 ML IV SCH ×5 (06:14→18:16)
[2017-02-24] MEDS: Metoclopramide 10mg/2ml Inj IVP PRN ×2 (06:15→19:40)
[2017-02-24] MEDS: PCA shift volume MISC SCH ×2 (07:00→19:16)
[2017-02-24 07:20] LABS: LYMPHOCYTES % (AUTO) 17.9 % (20.0-45.0); MEAN CORPUSCULAR HEMOGLOBIN 29.5 PG (27.0-31.0); MEAN CORPUSCULAR HGB CONC 34.9 G/DL (32.0-36.0); MEAN CORPUSCULAR VOLUME 85 FL (80-99); NEUTROPHILS % (AUTO) 65.1 % (45.0-75.0); PLATELET COUNT 541 K/UL (150-450); RED BLOOD COUNT 3.26 M/UL (4.20-5.40); RED CELL DISTRIBUTION WIDTH 13.9 % (11.6-14.8); WHITE BLOOD COUNT 12.2 K/UL (4.8-10.8)
[2017-02-24 07:21] LABS: ANION GAP 8 (5-15); CALCIUM 8.5 MG/DL (8.5-10.1); CARBON DIOXIDE 25 MMOL/L (21-32); CHLORIDE 103 MMOL/L (98-107); CREATININE 0.7 MG/DL (0.55-1.30); GLOMERULAR FILTRATION RATE > 60 mL/min (>60); MAGNESIUM 1.6 MG/DL (1.8-2.4); PHOSPHORUS 3.4 MG/DL (2.5-4.9); POTASSIUM 3.5 MMOL/L (3.5-5.1); SODIUM 136 MMOL/L (136-145)
[2017-02-24 08:00] VITALS: BP 112/72
--- NOTE | 2017-02-24 09:15 | General Progress Note ---
Progress Note Progress Note Afebrile. Intermittent tachycardia when anxious or having nausea or pain Abdomen soft, flat, healing well. Orin - nil Urine 1850 Gastrostomy 740 BCIR ileo 610 BRYANT 12 WBC 12,200 (down) Hgb 9.8 (up) Platelets 541,000 (up) Mg 1.6 Imp. Slowly resolving ileus Tachycardia Plan: STAT EKG D/C Flagyl Continue npo and TPN anticipate d/c urinary Menezes and Unasyn in MARIAMA MOTA Feb 24, 2017 09:15
[2017-02-24] MEDS: Pantoprazole Inj IVP SCH (09:21)
[2017-02-24] MEDS: LORazepam 1mg tab ORAL PRN ×3 (09:22→19:40)
[2017-02-24] MEDS ORDERED: Morphine Sulfate 4mg/ml Inj SUBQ PRN (09:30)
[2017-02-24] MEDS ORDERED: DiphenhydrAMINE 50mg/ml Inj IVP PRN (09:30)
[2017-02-24] MEDS ORDERED: Morphine Sulfate 2mg/ml Inj IVP PRN (09:30)
[2017-02-24] MEDS ORDERED: PCA Morphine 1mg/ml 30 ML IV PRN (09:30)
[2017-02-24] MEDS ORDERED: Naloxone 0.4mg/ml Inj IVP PRN (09:30)
[2017-02-24] MEDS ORDERED: Rate Change PCA 1 Each MISC PRN (09:30)
[2017-02-24 12:00] VITALS: BP 106/66
[2017-02-24 16:00] VITALS: BP 107/69
[2017-02-24] MEDS: Dyna-Hex 2% Top Sol 2oz TOPIC SCH (20:00)
[2017-02-24 20:41] VITALS: BP 114/78
[2017-02-24] MEDS: Fat Emulsion Iv 20% 216 ML in Tpn 1,680 ML IV SCH (21:27)
[2017-02-24] MEDS: D5 1/4NS w/KCl 20mEq 1,000 ML IV SCH (21:29)
[2017-02-25] MEDS: Ampicillin/Sulbactam Sod 3 GM in NS 110 ML IV SCH (00:09)
[2017-02-25 00:51] VITALS: BP 108/65
[2017-02-25] MEDS: Metoclopramide 10mg/2ml Inj IVP PRN ×2 (03:58→12:24)
[2017-02-25] MEDS: LORazepam 1mg tab ORAL PRN ×2 (03:58→18:23)
[2017-02-25 04:00] VITALS: BP 116/73
[2017-02-25] MEDS: NovoLOG Insulin Flexpen SUBQ SCH ×4 (06:29→18:21)
[2017-02-25] MEDS: PCA shift volume MISC SCH (07:00)
[2017-02-25 08:00] VITALS: BP 107/72
--- NOTE | 2017-02-25 08:07 | Cardiology Report ---
APPROVED REPORT EKG Measurement Heart [id number] Normal sinus rhythm Normal ECG
--- NOTE | 2017-02-25 08:49 | General Progress Note ---
Progress Note Progress Note AVSS Still with intermittent tachycardia 93-108 Ambulating freely in hallways Abdomen soft, healing nicely Urine 2800 Gastrostomy 470 BCIR ileo 790 BRYANT 6cc - drain removed; perineum healing nicely Imp. Ileus resolved Plan: D/C urinary Menezes and Unasyn Clear liquid diet and gastrostomy 3:3 protocol labs in AM continue TPN MARIAMA MEJIAS Feb 25, 2017 08:49
[2017-02-25] MEDS: Pantoprazole Inj IVP SCH (09:04)
[2017-02-25] MEDS: Ketorolac 30mg Inj IV PRN ×2 (11:06→19:56)
[2017-02-25 12:00] VITALS: BP 111/63
[2017-02-25] MEDS: Norco 5mg/325mg tab ORAL PRN (13:59)
[2017-02-25 15:40] LABS: APPEARANCE,URINE SLIGHTLY CLOUDY; KETONES,URINE NEGATIVE (NEGATIVE); LEUKOCYTE ESTERASE ,URINE 1+ (NEGATIVE); NITRITE,URINE NEGATIVE (NEGATIVE); PH,URINE 8 (4.5-8.0); PROTEIN,URINE NEGATIVE (NEGATIVE); UROBILINOGEN,URINE NORMAL MG/DL (0.0-1.0)
[2017-02-25 15:49] LABS: AMORPHOUS SEDIMENT,UR FEW /LPF; BACTERIA,URINE FEW /HPF; MUCUS,URINE FEW /LPF (NONE/OCC); SQUAMOUS EPITHELIAL CELL,UR FEW /LPF (NONE/OCC)
[2017-02-25 16:00] VITALS: BP 116/74
[2017-02-25 20:00] VITALS: BP 110/69
[2017-02-25] MEDS: Dyna-Hex 2% Top Sol 2oz TOPIC SCH (20:06)
[2017-02-25] MEDS: Fat Emulsion Iv 20% 216 ML in Tpn 1,680 ML IV SCH (21:29)
[2017-02-26] VITALS: BP 108/72
[2017-02-26 04:39] LABS: EOSINOPHILS % (AUTO) 6.6 % (0.0-3.0); LYMPHOCYTES % (AUTO) 16.1 % (20.0-45.0); MEAN CORPUSCULAR HEMOGLOBIN 28.1 PG (27.0-31.0); MEAN CORPUSCULAR HGB CONC 32.8 G/DL (32.0-36.0); MEAN CORPUSCULAR VOLUME 86 FL (80-99); MEAN PLATELET VOLUME 6.2 FL (6.5-10.1); MONOCYTES % (AUTO) 8.9 % (1.0-10.0); NEUTROPHILS % (AUTO) 67.3 % (45.0-75.0); PLATELET COUNT 611 K/UL (150-450); RED BLOOD COUNT 3.53 M/UL (4.20-5.40); RED CELL DISTRIBUTION WIDTH 15.9 % (11.6-14.8); WHITE BLOOD COUNT 14.8 K/UL (4.8-10.8)
[2017-02-26 04:42] VITALS: BP 108/67
[2017-02-26 05:23] LABS: ANION GAP 9 (5-15); CARBON DIOXIDE 22 MMOL/L (21-32); CHLORIDE 103 MMOL/L (98-107); CREATININE 0.6 MG/DL (0.55-1.30); GLOMERULAR FILTRATION RATE > 60 mL/min (>60); POTASSIUM 4.3 MMOL/L (3.5-5.1); SODIUM 134 MMOL/L (136-145)
[2017-02-26 05:27] LABS: CALCIUM 8.7 MG/DL (8.5-10.1)
[2017-02-26] MEDS: NovoLOG Insulin Flexpen SUBQ SCH ×5 (05:37→23:26)
[2017-02-26 08:00] VITALS: BP 104/66
[2017-02-26] MEDS: Ketorolac 30mg Inj IV PRN ×2 (08:27→18:10)
--- NOTE | 2017-02-26 08:34 | General Progress Note ---
Progress Note Progress Note AVSS with pulse 90-108. Having increased anxiety despite Lorazepam 1mg dosing. Tolerated clear liquids and gastrostomy 3:3 protocol but had small emesis early this AM Ambulates multiple times daily in hallways Abdomen soft, healing nicely Perineum healing nicely Voiding well although has pressure/pain initially Urine 2040 Gastrostomy 400 BCIR ileo 410 WBC up 14,800 Hgb up 9.9 Platelets up 611,000 BMP, Mg - all wnl Urine 5-10 WBC+RBC, 1+ leukocyte esterase. Urine C&S pending Imp. 1) Emesis ? etiology ? anxiety 2) Leukocytosis and elevated platelets Plan: Gastrostomy balloon partially deflated Advance to full liquid diet and gastrostomy 5:1 protocol as tolerated Await urine C&S Increase lorazepam to 2mg po q6h prn anxiety f/u labs in AM MARIAMA MEJIAS Feb 26, 2017 08:34
[2017-02-26] MEDS: LORazepam 1mg tab ORAL PRN ×3 (09:55→23:16)
[2017-02-26 12:00] VITALS: BP 110/71
[2017-02-26] MEDS: Norco 5mg/325mg tab ORAL PRN (13:54)
[2017-02-26 16:00] VITALS: BP 101/67
[2017-02-26 20:00] VITALS: BP 108/72
[2017-02-26] MEDS: Dyna-Hex 2% Top Sol 2oz TOPIC SCH (20:00)
[2017-02-26] MEDS: Fat Emulsion Iv 20% 216 ML in Tpn 1,680 ML IV SCH (21:40)
[2017-02-27 00:51] VITALS: BP 104/64
[2017-02-27 04:00] VITALS: BP 108/69
[2017-02-27] MEDS: NovoLOG Insulin Flexpen SUBQ SCH ×3 (06:26→18:00)
[2017-02-27 06:28] LABS: BASOPHILS % (AUTO) 1.3 % (0.0-2.0); LYMPHOCYTES % (AUTO) 20.5 % (20.0-45.0); MEAN CORPUSCULAR HEMOGLOBIN 27.8 PG (27.0-31.0); MEAN CORPUSCULAR HGB CONC 32.5 G/DL (32.0-36.0); MEAN CORPUSCULAR VOLUME 86 FL (80-99); MEAN PLATELET VOLUME 6.3 FL (6.5-10.1); MONOCYTES % (AUTO) 9.1 % (1.0-10.0); NEUTROPHILS % (AUTO) 61.2 % (45.0-75.0); PLATELET COUNT 633 K/UL (150-450); RED BLOOD COUNT 3.64 M/UL (4.20-5.40); RED CELL DISTRIBUTION WIDTH 15.3 % (11.6-14.8); WHITE BLOOD COUNT 13.7 K/UL (4.8-10.8)
[2017-02-27] MEDS: Ketorolac 30mg Inj IV PRN ×2 (07:36→15:56)
[2017-02-27 07:49] LABS: ALANINE AMINOTRANSFERASE 25 U/L (12-78); ALBUMIN/GLOBULIN RATIO 0.8 (1.0-2.7); ANION GAP 7 (5-15); ASPARTATE AMINO TRANSFERASE 21 U/L (15-37); CARBON DIOXIDE 25 MMOL/L (21-32); CHLORIDE 104 MMOL/L (98-107); CREATININE 0.7 MG/DL (0.55-1.30); GLOMERULAR FILTRATION RATE > 60 mL/min (>60); LIPASE 726 U/L (73-393); POTASSIUM 4.4 MMOL/L (3.5-5.1); SODIUM 136 MMOL/L (136-145); TOTAL PROTEIN 6.6 G/DL (6.4-8.2)
[2017-02-27] MEDS: LORazepam 1mg tab ORAL PRN ×2 (07:56→14:14)
[2017-02-27 08:00] VITALS: BP 107/71
--- NOTE | 2017-02-27 08:29 | General Progress Note ---
Progress Note Progress Note AVSS Pulse 85-105 Persistent intermittent c/o 8/10 severe pain in lower abdomen /supra-pubic and having some sharp pain with voiding. Urine C&S no growth so far tolerated gull liquid det and gastrostomy 5:1 protocol Abdomen soft, healing well, Orin nil Perineum healing well - non-tender and no pain Urine 2150 Gastrostomy (5:1 protocol) 460 BCIR ileo 510 WBC 14h009 Hgb 10.1 (up) Platelets 633,000 (up) Albumin 2.9 (up) Lipase 726 ( 73-393) Imp. Lower abdominal pain + pain with voiding: R/O intra-abdominal collection Leukocytosis and thrombocytosis slightly elevated lipase Plan: STAT CT scan abd+pelvis with oral and IV contrast NPO until scan result available Continue TPN MARIAMA MEJIAS Feb 27, 2017 08:29
[2017-02-27] MEDS: Norco 5mg/325mg tab ORAL PRN ×2 (11:31→20:28)
[2017-02-27 12:00] VITALS: BP 122/72
--- NOTE | 2017-02-27 12:16 | Diagnostic Imaging Report ---
Clinical Indication: 21-year-old female inpatient with history of continent ileostomy and proctocolectomy, now with lower abdominal pain Technique: Patient given enteric contrast via gastrostomy. IV administration nonionic contrast. Venous phase spiral acquisition obtained through the abdomen and pelvis. Multiplanar reconstructions were generated. Total dose length product 633 mGycm. CTDIvol(s) 13 mGy. Dose reduction achieved using automated exposure control Comparison: None Findings: Patient is status post complete colectomy with placement of a continent ileostomy pouch. A Menezes catheter is seen within the pouch. Ingested contrast is seen throughout the small bowel, and within the catheter shaft. No small bowel distention or small bowel wall thickening. No leakage of contrast is demonstrated. Within the pelvis, in the presacral/pre-coccygeal region, there is a gas and fluid collection which measures 5.4 cm transverse by 3.1 cm AP by 4.7 cm craniocaudad. This demonstrates somewhat higher than normal fluid attenuation and no peripheral contrast enhancement. No other unusual fluid collections are demonstrated. No other evidence of intra-abdominal gas demonstrated. There is a linear gas collection extending through the right anterior upper pelvic wall and into the peritoneal space, immediately caudad to the ileostomy pouch. A deeper linear gas collection is seen immediately adjacent to this, lateral to the ileostomy pouch and above the bladder dome. The distal esophagus, duodenum are unremarkable. The stomach contains a gastrostomy, the balloon of which is well inside the gastric fundus. The liver, gallbladder, bile ducts, pancreas, spleen, adrenals, kidneys are all unremarkable. No retroperitoneal or mesenteric mass or adenopathy. No pelvic mass or adenopathy. Uterus and ovaries are unremarkable. The included lung bases are clear. Impression: Postsurgical changes as described, status post total proctocolectomy and continent ileostomy placement 5.4 x 3.1 x 4.7 cm gas and fluid collection within the posterior lower pelvis. Suspect related to recent surgery. High attenuation of the fluid indicates that it is bloody, so this could represent a routine postoperative collection of serosanguineous fluid or a small hematoma. The possibility of abscess cannot be ruled out, however, and correlation with clinical findings is recommended No evidence of bowel obstruction. Enteric contrast is seen within the ileostomy pouch and within the draining catheter Linear gas collection in the right anterior pelvic wall. Suspect that this is the tract of a recently removed surgical drain. Correlate with surgical history/findings Gastrostomy in place The CT scanner at [facility] is accredited by the [employer] and the scans are performed using protocols designed to limit radiation exposure to as low as reasonably achievable to attain images of sufficient resolution adequate for diagnostic evaluation.
[2017-02-27 16:00] VITALS: BP 100/68
[2017-02-27 20:27] VITALS: BP 105/63
[2017-02-27] MEDS: Dyna-Hex 2% Top Sol 2oz TOPIC SCH ×2 (20:28→21:40)
[2017-02-27] MEDS: Fat Emulsion Iv 20% 216 ML in Tpn 1,680 ML IV SCH (21:00)
[2017-02-28] VITALS: BP 95/56
[2017-02-28] MEDS: NovoLOG Insulin Flexpen SUBQ SCH ×4 (00:26→18:07)
[2017-02-28 04:00] VITALS: BP 112/75
[2017-02-28] MEDS: Norco 5mg/325mg tab ORAL PRN ×2 (04:07→12:17)
[2017-02-28 05:43] LABS: BASOPHILS % (AUTO) 1.2 % (0.0-2.0); EOSINOPHILS % (AUTO) 6.1 % (0.0-3.0); LYMPHOCYTES % (AUTO) 19.1 % (20.0-45.0); MEAN CORPUSCULAR HEMOGLOBIN 27.8 PG (27.0-31.0); MEAN CORPUSCULAR HGB CONC 32.3 G/DL (32.0-36.0); MEAN CORPUSCULAR VOLUME 86 FL (80-99); MEAN PLATELET VOLUME 6.5 FL (6.5-10.1); MONOCYTES % (AUTO) 8.5 % (1.0-10.0); NEUTROPHILS % (AUTO) 65.1 % (45.0-75.0); PLATELET COUNT 615 K/UL (150-450); RED BLOOD COUNT 3.75 M/UL (4.20-5.40); RED CELL DISTRIBUTION WIDTH 15.3 % (11.6-14.8)
[2017-02-28 06:04] LABS: ANION GAP 7 (5-15); CARBON DIOXIDE 25 MMOL/L (21-32); CHLORIDE 102 MMOL/L (98-107); CREATININE 0.8 MG/DL (0.55-1.30); GLOMERULAR FILTRATION RATE > 60 mL/min (>60); LIPASE 493 U/L (73-393); POTASSIUM 4.2 MMOL/L (3.5-5.1); SODIUM 134 MMOL/L (136-145)
[2017-02-28] MEDS: LORazepam 1mg tab ORAL PRN ×3 (07:58→20:44)
[2017-02-28] MEDS: Ketorolac 30mg Inj IV PRN ×2 (07:58→20:44)
[2017-02-28 08:00] VITALS: BP 107/63
--- NOTE | 2017-02-28 08:33 | General Progress Note ---
Progress Note Progress Note AVSS Had some cramping pain early this AM likely due to the food she ate with melted cheese. Now feels much better. She has tolerated continuous plugging of the gastrostomy and BCIR low residue diet Abdomen soft, flat. 1/3 william removed. Monarch drain removed Perineum healing well Urine 1700 BCIR ileo 585 (only 115 overnight) - ileo catheter flushed with good return Urine C&S - negative WBC 13,000 (down) Hgb 10.4 (up) Platelets 615,000 (down) Lipase 493 (nl up to 393) - down Imp.Pelvic fluid collection (pre-sacral from proctectomy) - for CT guided aspiration this AM doing well overall Plan: CT guided aspiration Anticipate starting self-intubations with RN teaching/supervision tomorrow if doing well Continue TPN as patient npo for imaging studies yesterday and today MARIAMA MEJIAS Feb 28, 2017 08:33
[2017-02-28 09:15] LABS: PROTHROMBIN TIME 10.1 SEC (9.30-11.50)
[2017-02-28 12:00] VITALS: BP 102/67
[2017-02-28] MEDS ORDERED: Ketorolac 30mg Inj IM ONE (13:00)
[2017-02-28] MEDS ORDERED: Ketorolac 30mg Inj IV ONE (13:10)
[2017-02-28 16:00] VITALS: BP 96/60
[2017-02-28 20:00] VITALS: BP 100/66
[2017-02-28] MEDS: Fat Emulsion Iv 20% 216 ML in Tpn 1,680 ML IV SCH (20:46)
[2017-02-28] MEDS: Phytonadione 10 mg/mL 1ml amp SUBQ SCH (20:51)
[2017-03-01] VITALS: BP 112/65
[2017-03-01 04:00] VITALS: BP 105/68
[2017-03-01 04:25] LABS: EOSINOPHILS % (AUTO) 6.7 % (0.0-3.0); LYMPHOCYTES % (AUTO) 21.1 % (20.0-45.0); MEAN CORPUSCULAR HEMOGLOBIN 27.9 PG (27.0-31.0); MEAN CORPUSCULAR HGB CONC 32.3 G/DL (32.0-36.0); MEAN CORPUSCULAR VOLUME 86 FL (80-99); MEAN PLATELET VOLUME 6.7 FL (6.5-10.1); NEUTROPHILS % (AUTO) 61.3 % (45.0-75.0); PLATELET COUNT 539 K/UL (150-450); RED BLOOD COUNT 3.33 M/UL (4.20-5.40); RED CELL DISTRIBUTION WIDTH 15.1 % (11.6-14.8); WHITE BLOOD COUNT 11.3 K/UL (4.8-10.8)
[2017-03-01 04:42] LABS: ANION GAP 4 (5-15); CALCIUM 8.9 MG/DL (8.5-10.1); CARBON DIOXIDE 27 MMOL/L (21-32); CHLORIDE 102 MMOL/L (98-107); CREATININE 0.6 MG/DL (0.55-1.30); GLOMERULAR FILTRATION RATE > 60 mL/min (>60); MAGNESIUM 1.9 MG/DL (1.8-2.4); PHOSPHORUS 4.5 MG/DL (2.5-4.9); POTASSIUM 4.1 MMOL/L (3.5-5.1); SODIUM 133 MMOL/L (136-145)
[2017-03-01] MEDS: NovoLOG Insulin Flexpen SUBQ SCH ×4 (05:46→18:00)
[2017-03-01] MEDS: LORazepam 1mg tab ORAL PRN ×3 (08:01→20:58)
[2017-03-01] MEDS: Ketorolac 30mg Inj IV PRN ×3 (08:02→20:59)
[2017-03-01 08:08] VITALS: BP 109/63
--- NOTE | 2017-03-01 09:27 | General Progress Note ---
Progress Note Progress Note AVSS Had more cramping yesterday so diet reduced to clear liquids and gastrostomy placed to drainage with no output and cramping has resolved ABdomen soft, flat. [place] removed and steristrips applied. Perineum healing nicely Urine 2200 BCIR ileo 350 WBC down 11,300 Hgb 9.3 Platelets down 539,000 BMP,Mg,P - all wnl Imp. Improving Plan: Resume BCIR low residue diet Gastrostomy removed without difficulty Continue TPN and add Venofer 200mg IV tonight If does well today, will begin BCIR continent ileostomy pouch intubations in MARIAMA MOTA Mar 01, 2017 09:27
[2017-03-01] MEDS: Ascorbic Acid 500mg tab ORAL PRN ×4 (10:02→20:58)
[2017-03-01] MEDS ORDERED: Iron Sucrose 200 MG in NS 110 ML IV ONE (11:00)
[2017-03-01 11:48] VITALS: BP 100/69
[2017-03-01 15:48] VITALS: BP 102/62
[2017-03-01 20:14] VITALS: BP 98/76
[2017-03-01] MEDS: Dyna-Hex 2% Top Sol 2oz TOPIC SCH (20:58)
[2017-03-01] MEDS: Fat Emulsion Iv 20% 216 ML in Tpn 1,680 ML IV SCH (21:00)
[2017-03-02] VITALS (7 sets, daily range): BP systolic 94–105; BP diastolic 61–68
[2017-03-02] MEDS: Ketorolac 30mg Inj IV PRN ×2 (04:02→10:33)
[2017-03-02] MEDS: LORazepam 1mg tab ORAL PRN ×3 (04:02→22:10)
[2017-03-02] MEDS: NovoLOG Insulin Flexpen SUBQ SCH ×3 (06:00→12:07)
[2017-03-02] MEDS: Ascorbic Acid 500mg tab ORAL PRN ×3 (08:23→18:50)
--- NOTE | 2017-03-02 10:01 | General Progress Note ---
Progress Note Progress Note AVSS Doing much better eating BCIR diet and no cramping Abdomen soft, well healed. Perineum well healed BCIR ileo tube removed - reinserts readily Urine 3200 BCIR ileo 535 Imp. Doing well Plan: Begin RN education/supervision of BCIR self-intubations q2h from awakening to hs andj q0200 Taper and d/c TPN and remove PIC line (had 700mg total Venofer) Continue strict I&O MARIAMA MEJIAS Mar 02, 2017 10:01
[2017-03-02] MEDS ORDERED: Tubing IV Secondary IV ONE (10:53)
[2017-03-02] MEDS: Norco 5mg/325mg tab ORAL PRN (18:50)
[2017-03-03] MEDS: Ascorbic Acid 500mg tab ORAL PRN ×5 (03:30→21:09)
[2017-03-03 04:35] VITALS: BP 112/66
[2017-03-03 08:00] VITALS: BP 98/62
[2017-03-03] MEDS: LORazepam 1mg tab ORAL PRN ×3 (08:07→22:04)
[2017-03-03] MEDS: Norco 5mg/325mg tab ORAL PRN ×3 (08:09→22:04)
--- NOTE | 2017-03-03 08:38 | General Progress Note ---
Progress Note Progress Note AVSS Eating well. Is learning BCIR self-intubation techniques and management. Abdomen soft, well healed. Perineum - sutures removed - well healed. To maintain dry gauze in perineum x 2 weeks Urine 3000 BCIR ileo 830 Imp. Improving Plan: Continue RN supervised BCIR self-intubations q2h am to hs and 0200 Try abdominal binder for comfort while ambulating continue I&0 MARIAMA MEJIAS Mar 03, 2017 08:38
[2017-03-03 12:00] VITALS: BP 103/67
[2017-03-03 16:00] VITALS: BP 110/67
[2017-03-03 20:00] VITALS: BP 112/66
[2017-03-04 02:00] VITALS: BP 89/55
[2017-03-04] MEDS: Ascorbic Acid 500mg tab ORAL PRN ×2 (02:38→08:13)
[2017-03-04 08:00] VITALS: BP 96/67
[2017-03-04] MEDS: LORazepam 1mg tab ORAL PRN (08:13)
[2017-03-04] MEDS: Norco 5mg/325mg tab ORAL PRN (08:14)
--- NOTE | 2017-03-04 08:36 | General Progress Note ---
Progress Note Progress Note AVSS. Has learned intubation technique well for Dueñas Pouch continent ileostomy. continues to eat well also Abdomen soft, flat, well healed incision and stoma Perineum very nicely healed Urine 2200 BCIR ileo 1160 Imp. doing well Plan: discharge full supplies/instructions/limitations provided and discussed Rx [place] + Ativan f/u office 03/10 and MARIAMA Lopez Mar 04, 2017 08:36
[2017-03-04] MEDS ORDERED: Norco 5mg/325mg tab ORAL PRN (08:45)
--- NOTE | 2017-03-07 10:03 | Discharge Summary ---
Discharge Summary Hospital Course Date of Admission Feb 17, 2017 at 09:19 Date of Discharge Mar 04, 2017 at 10:00 Admitting Diagnosis HPI The patient is a 21-year-old female in overall stable health with intractable ulcerative colitis. She developed ulcerative colitis in 2008 at 13 years of age. She has been treated with all the available medications including steroids, which have caused side effects that she could not tolerate, mesalamine and in the past was recommended to have biologics, but has refused because she has been very sensitive to medications. 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 The patient more recently was treated with budesonide, but stopped four months ago because of side effects similar to her previous prednisone. Her current medications include Lialda 1.2 grams four times a day, Bentyl p.r.n. cramping, Rowasa enemas and suppositories. She has been evaluated for surgery including creation of an ileoanal J-pouch, but she does not want a J-pouch reconstruction. She states that she has minimal sphincter control even with formed stool when her colitis has been somewhat controlled. She also wants to avoid a conventional ileostomy requiring that she wear an external appliance at all times. She has been having 10 to 12 stools per day with her flares, which she has repeatedly. She is scheduled to be admitted to undergo proctocolectomy with creation of a Dueñas type of Kock pouch continent ileostomy. Procedures Operation Performed: Proctocolectomy with creation of a Dueñas type of Kock pouch continent ileostomy. Hospital Course She was admitted on 02/17/17 and underwent insertion of a dual lumen PICC line, and was started with intravenous hydration and preoperative intravenous antibiotics the night before surgery. She was given bowel prep and preoperative subcutaneous heparin. The following day, she underwent Proctocolectomy with creation of a Dueñas type of Kock pouch continent ileostomy. Postoperatively, she had episode of fever which eventually resolved. She was given pain management with ASSISTANT TEACHING PROFESSOR Dilaudid. She was still complaining of pain, Toradol was added to ASSISTANT TEACHING PROFESSOR. She was continued on NPO. She was eventually started on TPN and ASSISTANT TEACHING PROFESSOR Dilaudid was switched to ASSISTANT TEACHING PROFESSOR Morphine. She had episodes of intermitted tachycardia when anxious and when in pain. EKG was done. She was given Lorazepam prn and Magnesium supplement IV. She had persistent intermittent, 8/10 severe pain in lower abdomen/supra-pubic and some sharp pain with voiding. Urine C&S no growth. CT scan normal except for small pre-sacral pre-coccygeal air/fluid collection. Discussed CT guided procedure with Radiologist who feels that these are post-op changes and not an evolving abscess. In absence of fever and rising WBC.Plan for aspiration/drain was cancelled. She tolerated full liquid diet and gastrostomy 5:1 protocol. She had less abdominal cramping and was advanced to BCIR diet. She was started on supervised BCIR intubations. Taper and d/c TPN and remove PICC line (had 700mg total Venofer). she was tapered off ASSISTANT TEACHING PROFESSOR and was given [place]. On the day of discharge: AVSS. Has learned intubation technique well for Dueñas Pouch continent ileostomy. Continues to eat well Abdomen soft, flat, well healed incision and stoma Perineum very nicely healed Urine 2200 BCIR ileo 1160 Imp. doing well Plan: discharge full supplies/instructions/limitations provided and discussed Rx [place] + Ativan f/u office 03/10 and prn PREOPERATIVE DIAGNOSIS: Intractable ulcerative colitis. POSTOPERATIVE DIAGNOSIS: Intractable ulcerative colitis. Operation Performed: Proctocolectomy with creation of a Dueñas type of Kock pouch continent ileostomy. -I have been assigned to complete a DC summary on this account, I was not involved in the patient's management.--HANNAH Meier Discharge Discharge Disposition Patient was discharged to Home (01) Discharge Diagnoses: Krystal Martin NP Mar 07, 2017 10:03
== END 2017-03-04 10:00 | disposition home or self-care (01) | DRG 330 ==
LOC: 3E 09:19
PROC: B518ZZA Fluoroscopy of Superior Vena Cava, Guidance (ICD-10-PCS; principal; 2017-02-17)
PROC: 02HV33Z Insertion of Infusion Device into Superior Vena Cava, Percutaneous Approach (ICD-10-PCS; principal; 2017-02-17)
PROC: 0DTM0ZZ Resection of Descending Colon, Open Approach (ICD-10-PCS; 2017-02-18)
PROC: 0D1B0Z4 Bypass Ileum to Cutaneous, Open Approach (ICD-10-PCS; 2017-02-18)
PROC: 0DTL0ZZ Resection of Transverse Colon, Open Approach (ICD-10-PCS; 2017-02-18)
PROC: 0DTK0ZZ Resection of Ascending Colon, Open Approach (ICD-10-PCS; 2017-02-18)
PROC: 0DTP0ZZ Resection of Rectum, Open Approach (ICD-10-PCS; 2017-02-18)
PROC: 0DTH0ZZ Resection of Cecum, Open Approach (ICD-10-PCS; 2017-02-18)
DX: K51.80 Other ulcerative colitis without complications (principal); K56.7 Ileus, unspecified; E46 Unspecified protein-calorie malnutrition; J98.11 Atelectasis; D64.9 Anemia, unspecified; Z68.24 Body mass index [BMI] 24.0-24.9, adult; D47.3 Essential (hemorrhagic) thrombocythemia
CPT/HCPCS: 36415; 36569; 71010; 74177; 76937; 80048; 80053; 81001; 81025; 82607; 82962; 83540; 83550; 83690; 83735; 84100; 85007; 85025; 85610; 85730; 86850; 86900; 86901; 87086; 93005; 94003; 94150; J1815; J2250; J2405; J2710; J2765

== ENCOUNTER 2017-03-19 11:32 | Inpatient (IN) | payer BC ==
--- NOTE | 2017-03-17 14:15 | Pre-op HX & Phy Repo 2 SIG ---
PREENDOSCOPY HISTORY AND PHYSICAL Scheduled for Dueñas continent ileostomy pouch endoscopy on 03/19/2017. HISTORY OF PRESENT ILLNESS: The patient is a 21-year-old female, in overall stable health who underwent surgery on 02/18/2017 for intractable ulcerative colitis. The procedure included proctocolectomy and creation of a Dueñas type of Kock pouch continent ileostomy. The patient was discharged on 03/04/2017 self-intubating her pouch every two hours during the day and at 2 a.m. at night using a 30-Hong Konger Michelle catheter. Prior to discharge, she had developed pelvic symptoms and had a CT scan of abdomen and pelvis revealing only some postoperative changes in the presacral area. The patient had pre-discharge urine culture, which was negative. Since discharge, the patient shortly thereafter developed some difficulty with the catheter entering the pouch to evacuate her waste. She was advised to intubate with a 28-Hong Konger Menezes catheter and improved. Her main incision and the stoma and the perineum all healed nicely. She had continued difficulty and finally got the 30-Hong Konger Michelle catheter into her pouch and taped it in place. She then developed symptoms of pouchitis with severe gas and cramps and need to empty the pouch very frequently. She was started on Flagyl 250 mg t.i.d. with only slight improvement and only had resolution of symptoms with Cipro 500 mg every 12 hours. She developed shortness of breath and tachycardia on 03/10/2017 and I advised to go to the emergency room where she was living in [place] at that time. A CT angiogram of the chest and complete evaluation was performed, all of which was negative and the symptoms were attributed to severe anxiety. The patient improved and on 03/12/2017 removed the catheter but as time went by, by the next day on 03/13/2017 she was having painful intubations. The Michelle catheter would not go far enough into the pouch to drain and when she tried to insert it further, she had severe pain. The Medena catheter went in just far enough for drainage, but she also could not advance it fully into the pouch without pain. The patient has also tried a 24-Hong Konger Medena catheter and the 28-Hong Konger Menezes catheter without success. She returned to the hospital Emergency Department in [place] and a Colorectal surgeon supervised her inserting a catheter into the pouch with good drainage. She then was able to replace it with a larger tube. She has kept the catheter plugged, draining the pouch contents per her intubation schedule now q3h. In view of the patient's overall symptoms and especially her pain and marked difficulty with intubating her pouch, she is scheduled to undergo pouch endoscopy with sedation on 03/19/2017 as an outpatient. MEDICATIONS: Ativan for anxiety, hydrocodone for pain, and recent Flagyl and Cipro for pouchitis. ALLERGIES TO MEDICATIONS: None. OPERATIONS: Only the above. REVIEW OF SYSTEMS: The patient has regular menstrual periods. She is nulliparous. Recent vaginal discharge treated with Monistat suppositories. PHYSICAL EXAMINATION: GENERAL: [place] and will be examined upon arrival and dictated separately. IMPRESSION: 1. Malfunctioning Dueñas continent ileostomy with painful intubations and difficulty with intubation 2. History of ulcerative colitis. 3. Status post proctocolectomy with creation of a Dueñas continent ileostomy on 02/18/2017. PLAN: The patient will undergo pouch endoscopy, which will require sedation in view of the pain she has been experiencing. Based on the findings, we will determine how to proceed. I have discussed the nature of the procedure with the patient including indications, options and risks. Dago Mancuso M.D. DR: LISA JOB#: [id number] CC: SACHI
--- NOTE | 2017-03-17 14:15 | Pre-op HX & Phy Repo 2 SIG ---
PREENDOSCOPY HISTORY AND PHYSICAL Scheduled for Dueñas continent ileostomy pouch endoscopy on 03/19/2017. HISTORY OF PRESENT ILLNESS: The patient is a 21-year-old female, in overall stable health who underwent surgery on 02/18/2017 for intractable ulcerative colitis. The procedure included proctocolectomy and creation of a Dueñas type of Kock pouch continent ileostomy. The patient was discharged on 03/04/2017 self-intubating her pouch every two hours during the day and at 2 a.m. at night using a 30-Beninese Michelle catheter. Prior to discharge, she had developed pelvic symptoms and had a CT scan of abdomen and pelvis revealing only some postoperative changes in the presacral area. The patient had pre-discharge urine culture, which was negative. Since discharge, the patient shortly thereafter developed some difficulty with the catheter entering the pouch to evacuate her waste. She was advised to intubate with a 28-Beninese Menezes catheter and improved. Her main incision and the stoma and the perineum all healed nicely. She had continued difficulty and finally got the 30-Beninese Michelle catheter into her pouch and taped it in place. She then developed symptoms of pouchitis with severe gas and cramps and need to empty the pouch very frequently. She was started on Flagyl 250 mg t.i.d. with only slight improvement and only had resolution of symptoms with Cipro 500 mg every 12 hours. She developed shortness of breath and tachycardia on 03/10/2017 and I advised to go to the emergency room where she was living in [place] at that time. A CT angiogram of the chest and complete evaluation was performed, all of which was negative and the symptoms were attributed to severe anxiety. The patient improved and on 03/12/2017 removed the catheter but as time went by, by the next day on 03/13/2017 she was having painful intubations. The Michelle catheter would not go far enough into the pouch to drain and when she tried to insert it further, she had severe pain. The Medena catheter went in just far enough for drainage, but she also could not advance it fully into the pouch without pain. The patient has also tried a 24-Beninese Medena catheter and the 28-Beninese Menezes catheter without success. She returned to the hospital Emergency Department in [place] and a Colorectal surgeon supervised her inserting a catheter into the pouch with good drainage. She then was able to replace it with a larger tube. She has kept the catheter plugged, draining the pouch contents per her intubation schedule now q3h. In view of the patient's overall symptoms and especially her pain and marked difficulty with intubating her pouch, she is scheduled to undergo pouch endoscopy with sedation on 03/19/2017 as an outpatient. MEDICATIONS: Ativan for anxiety, hydrocodone for pain, and recent Flagyl and Cipro for pouchitis. ALLERGIES TO MEDICATIONS: None. OPERATIONS: Only the above. REVIEW OF SYSTEMS: The patient has regular menstrual periods. She is nulliparous. Recent vaginal discharge treated with Monistat suppositories. PHYSICAL EXAMINATION: GENERAL: [place] and will be examined upon arrival and dictated separately. IMPRESSION: 1. Malfunctioning Dueñas continent ileostomy with painful intubations and difficulty with intubation 2. History of ulcerative colitis. 3. Status post proctocolectomy with creation of a Dueñas continent ileostomy on 02/18/2017. PLAN: The patient will undergo pouch endoscopy, which will require sedation in view of the pain she has been experiencing. Based on the findings, we will determine how to proceed. I have discussed the nature of the procedure with the patient including indications, options and risks. Dago Mancuso M.D. DR: LISA JOB#: [id number] CC: SACHI
--- NOTE | 2017-03-17 14:15 | Pre-op HX & Phy Repo 2 SIG ---
PREENDOSCOPY HISTORY AND PHYSICAL Scheduled for Dueñas continent ileostomy pouch endoscopy on 03/19/2017. HISTORY OF PRESENT ILLNESS: The patient is a 21-year-old female, in overall stable health who underwent surgery on 02/18/2017 for intractable ulcerative colitis. The procedure included proctocolectomy and creation of a Dueñas type of Kock pouch continent ileostomy. The patient was discharged on 03/04/2017 self-intubating her pouch every two hours during the day and at 2 a.m. at night using a 30-Bulgarian Michelle catheter. Prior to discharge, she had developed pelvic symptoms and had a CT scan of abdomen and pelvis revealing only some postoperative changes in the presacral area. The patient had pre-discharge urine culture, which was negative. Since discharge, the patient shortly thereafter developed some difficulty with the catheter entering the pouch to evacuate her waste. She was advised to intubate with a 28-Bulgarian Menezes catheter and improved. Her main incision and the stoma and the perineum all healed nicely. She had continued difficulty and finally got the 30-Bulgarian Michelle catheter into her pouch and taped it in place. She then developed symptoms of pouchitis with severe gas and cramps and need to empty the pouch very frequently. She was started on Flagyl 250 mg t.i.d. with only slight improvement and only had resolution of symptoms with Cipro 500 mg every 12 hours. She developed shortness of breath and tachycardia on 03/10/2017 and I advised to go to the emergency room where she was living in [place] at that time. A CT angiogram of the chest and complete evaluation was performed, all of which was negative and the symptoms were attributed to severe anxiety. The patient improved and on 03/12/2017 removed the catheter but as time went by, by the next day on 03/13/2017 she was having painful intubations. The Michelle catheter would not go far enough into the pouch to drain and when she tried to insert it further, she had severe pain. The Medena catheter went in just far enough for drainage, but she also could not advance it fully into the pouch without pain. The patient has also tried a 24-Bulgarian Medena catheter and the 28-Bulgarian Menezes catheter without success. She returned to the hospital Emergency Department in [place] and a Colorectal surgeon supervised her inserting a catheter into the pouch with good drainage. She then was able to replace it with a larger tube. She has kept the catheter plugged, draining the pouch contents per her intubation schedule now q3h. In view of the patient's overall symptoms and especially her pain and marked difficulty with intubating her pouch, she is scheduled to undergo pouch endoscopy with sedation on 03/19/2017 as an outpatient. MEDICATIONS: Ativan for anxiety, hydrocodone for pain, and recent Flagyl and Cipro for pouchitis. ALLERGIES TO MEDICATIONS: None. OPERATIONS: Only the above. REVIEW OF SYSTEMS: The patient has regular menstrual periods. She is nulliparous. Recent vaginal discharge treated with Monistat suppositories. PHYSICAL EXAMINATION: GENERAL: [place] and will be examined upon arrival and dictated separately. IMPRESSION: 1. Malfunctioning Dueñas continent ileostomy with painful intubations and difficulty with intubation 2. History of ulcerative colitis. 3. Status post proctocolectomy with creation of a Dueñas continent ileostomy on 02/18/2017. PLAN: The patient will undergo pouch endoscopy, which will require sedation in view of the pain she has been experiencing. Based on the findings, we will determine how to proceed. I have discussed the nature of the procedure with the patient including indications, options and risks. Dago Mancuso M.D. DR: LISA JOB#: [id number] CC: SACHI
[2017-03-19] VITALS (10 sets, daily range): BP systolic 94–111; BP diastolic 55–75
[~2017-03-19] VITALS: Ht 160 cm; Wt 63.5 kg
--- NOTE | 2017-03-19 11:06 | Anethesia Preoperative Eval ---
Anesthesia Pre-op PMH/ROS General Date of Evaluation: Mar 19, 2017 Time of Evaluation: 11:04 Anesthesiologist: yen ASA Score: ASA 3 Mallampati Score Class I : Soft palate, uvula, fauces, pillars visible Class II: Soft palate, uvula, fauces visible Class III: Soft palate, base of uvula visible Class IV: Only hard plate visible Mallampati Classification: Class II Surgeon: valerio Diagnosis: malfunctioning BCIR Surgical Procedure: endoscopy BCIR pouch Anesthesia History: none Social History: smoking - nonsmoker Family History: no anesthesia problems Allergies: Coded Allergies: DIPHENHYDRAMINE (Verified Allergy, Severe, 03/19/17) SEVERE PANIC ATTACK Medications: see eMAR Past Medical History Gastrointestinal/Genitourinary: Reports: other - ulcerative colitis Neurologic/Psychiatric: Reports: depression/anxiety Anesthesia Pre-op Phys. Exam Physician Exam Last Vital Signs Date Time Temp Pulse Resp B/P (MAP) Pulse Ox O2 Delivery O2 Flow Rate FiO2 03/19/17 12:25 97.7 105 20 111/74 97 Room Air Constitutional: NAD Neurologic: CN 2-12 intact Cardiovascular: RRR Respiratory: CTA Gastrointestinal: other - BCIR pouch , ostomy patent Airway Exam Mallampati Score: Class II MO: full Neck: supple TMD: 2fb ROM: full Teeth: intact Anesthesia Pre-op A/P Labs Labs Test 03/19/17 11:55 Urine HCG, Qualitative Negative Risk Assessment & Plan Assessment: asa3 Plan: mac Status Change Before Surgery: No Pre-Antibiotics Drug: DAWN Schmidt Mar 19, 2017 11:06
[~2017-03-19 11:32] MED LIST: D5 1/4NS w/KCl 20mEq 1,000 ML IV SCH
[2017-03-19] MEDS ORDERED: NO KNOWN MEDS (12:21)
[2017-03-19] MEDS ORDERED: Lidocaine 1% MPF 10mg/ml 5ml ONE (12:30)
[2017-03-19] MEDS ORDERED: Propofol 200mg/20ml IV ONE (12:30)
--- NOTE | 2017-03-19 12:40 | Pre-Procedure Note/Attestation ---
Pre-Procedure Note/Attestation Complete Prior to Procedure Planned Procedure: not applicable Procedure Narrative: Dueñas Continent Ileostomy Pouch endoscopy Indications for Procedure Pre-Operative Diagnosis: Malfunctioning Dueñas Continent Ileostomy with painful difficult intubations Attestation I attest that I discussed the nature of the procedure; its benefits; risks and complications; and alternatives (and the risks and benefits of such alternatives ), prior to the procedure, with the patient (or the patient's legal new accounts representative). I attest that, if there was a reasonable possibility of needing a blood transfusion, the patient (or the patient's legal new accounts representative) was given the [facility] standardized written summary, pursuant to the [place] Blood Safety Act ([place] Health and Safety Code # 1645, as amended). I attest that I re-evaluated the patient just prior to the surgery and that there has been no change in the patient's H&P, except as documented below:none MARIAMA MEJIAS Mar 19, 2017 12:40
--- NOTE | 2017-03-19 12:40 | Pre-Procedure Note/Attestation ---
Pre-Procedure Note/Attestation Complete Prior to Procedure Planned Procedure: not applicable Procedure Narrative: Dueñas Continent Ileostomy Pouch endoscopy Indications for Procedure Pre-Operative Diagnosis: Malfunctioning Dueñas Continent Ileostomy with painful difficult intubations Attestation I attest that I discussed the nature of the procedure; its benefits; risks and complications; and alternatives (and the risks and benefits of such alternatives ), prior to the procedure, with the patient (or the patient's legal shared services representative). I attest that, if there was a reasonable possibility of needing a blood transfusion, the patient (or the patient's legal shared services representative) was given the [facility] standardized written summary, pursuant to the Armando [place] Blood Safety Act ([place] Health and Safety Code # 1645, as amended). I attest that I re-evaluated the patient just prior to the surgery and that there has been no change in the patient's H&P, except as documented below:none MARIAMA MEJIAS Mar 19, 2017 12:40
--- NOTE | 2017-03-19 12:40 | Pre-Procedure Note/Attestation ---
Pre-Procedure Note/Attestation Complete Prior to Procedure Planned Procedure: not applicable Procedure Narrative: Dueñas Continent Ileostomy Pouch endoscopy Indications for Procedure Pre-Operative Diagnosis: Malfunctioning Dueñas Continent Ileostomy with painful difficult intubations Attestation I attest that I discussed the nature of the procedure; its benefits; risks and complications; and alternatives (and the risks and benefits of such alternatives ), prior to the procedure, with the patient (or the patient's legal membership sales representative). I attest that, if there was a reasonable possibility of needing a blood transfusion, the patient (or the patient's legal membership sales representative) was given the [facility] standardized written summary, pursuant to the Armando Linda Blood Safety Act ([place] Health and Safety Code # 1645, as amended). I attest that I re-evaluated the patient just prior to the surgery and that there has been no change in the patient's H&P, except as documented below:none MARIAMA MEJIAS Mar 19, 2017 12:40
[2017-03-19] MEDS ORDERED: fentaNYL 100 mcg/2 mL IV PRN (12:45)
[2017-03-19] MEDS ORDERED: Atropine Inj 1mg/10ml Syr IV PRN (12:45)
[2017-03-19] MEDS ORDERED: Midazolam 2mg/2ml Inj IVP PRN (12:45)
[2017-03-19 12:48] LABS: BASOPHILS % (AUTO) 1.3 % (0.0-2.0); EOSINOPHILS % (AUTO) 1.7 % (0.0-3.0); HEMATOCRIT 41.9 % (37.0-47.0); HEMOGLOBIN 13.4 G/DL (12.0-16.0); LYMPHOCYTES % (AUTO) 29.2 % (20.0-45.0); MEAN CORPUSCULAR VOLUME 88 FL (80-99); MONOCYTES % (AUTO) 10.3 % (1.0-10.0); NEUTROPHILS % (AUTO) 57.6 % (45.0-75.0); PLATELET COUNT 422 K/UL (150-450); RED BLOOD COUNT 4.75 M/UL (4.20-5.40); RED CELL DISTRIBUTION WIDTH 14.7 % (11.6-14.8); WHITE BLOOD COUNT 7.7 K/UL (4.8-10.8)
[2017-03-19 13:00] LABS: INR 1.1 (0.9-1.1)
[2017-03-19 13:14] LABS: ALANINE AMINOTRANSFERASE 45 U/L (12-78); ALBUMIN 4.1 G/DL (3.4-5.0); ALBUMIN/GLOBULIN RATIO 1.1 (1.0-2.7); ALKALINE PHOSPHATASE 51 U/L (46-116); ANION GAP 15 mmol/L (5-15); ASPARTATE AMINO TRANSFERASE 24 U/L (15-37); BILIRUBIN,TOTAL 0.6 MG/DL (0.2-1.0); BLOOD UREA NITROGEN 6 mg/dL (7-18); CALCIUM 9.8 MG/DL (8.5-10.1); CARBON DIOXIDE 21 MMOL/L (21-32); CHLORIDE 104 MMOL/L (98-107); CREATININE 0.7 MG/DL (0.55-1.30); POTASSIUM 3.7 MMOL/L (3.5-5.1); SODIUM 140 MMOL/L (136-145)
--- NOTE | 2017-03-19 13:20 | Brief Operative Note ---
Immediate Post Operative Note Operative Note Pre-op Diagnosis: Malfunctioning Dueñas Continent Ileostomy with painful difficult intubations Procedure: Dueñas Continent Ileostomy pouch endoscopy Post-op Diagnosis: edema of nipple valve segment Post-op Diagnosis: same as pre-op Findings: consistent w/pre-op dx studies Surgeon: valerio Anesthesiologist: crow Anesthesia: MAC Specimen: none Complications: none Condition: stable Fluids: see anesthesia record Estimated Blood Loss: none Drains: other - 28 Menezes to Dueñas Pouch Implant(s) used?: MARIAMA Lindsay Mar 19, 2017 13:20
--- NOTE | 2017-03-19 13:37 | General Progress Note ---
Progress Note Progress Note H&P dictated. Patient 4 weeks post-op proctocolectomy and Dueñas Continent Ileostomy for Ulcerative Colitis. Having difficulty intubating her Dueñas Pouch with marked pain with intubations. Has maintained an indwelling catheter with plug, draining pouch contents q3h. Dueñas Pouch endoscopy performed with IV sedation by Anesthesiologist:: edema of nipple valve segment, 10cm stoma to valve tip (slightly redundant). I was able to insert 28 Menezes into pouch with good drainage Imp. Malfunctioning Dueñas Continent Ileostomy Plan: Admit to observation - maintain catheter to continuous drainage overnight and remove in AM then starting RN supervised self-intubations. MARIAMA MEJIAS Mar 19, 2017 13:37
[2017-03-19] MEDS ORDERED: ALPRAZolam 0.5mg tab ORAL PRN (13:45)
[2017-03-19] MEDS ORDERED: Norco 5mg/325mg tab ORAL PRN (13:45)
[2017-03-19] MEDS ORDERED: Zolpidem 5mg tab ORAL PRN (13:45)
[2017-03-19] MEDS ORDERED: LORazepam 1mg tab ORAL PRN (13:45)
--- NOTE | 2017-03-19 13:48 | Immediate Post-Op Evaluation ---
Immediate Post-Op Evalulation Immediate Post-Op Evalulation Procedure: endoscopyBCIR pouch Date of Evaluation: Mar 19, 2017 Time of Evaluation: 13:47 IV Fluids: 0.9ns 300ml Blood Products: none Estimated Blood Loss: negligible Blood Pressure Systolic: 105 Blood Pressure Diastolic: 64 Pulse Rate: 61 Respiratory Rate: 18 O2 Sat by Pulse Oximetry: 100 Temperature (Fahrenheit): 97.5 Pain Score (1-10): 0 Nausea: No Vomiting: No Complications none Patient Status: awake, reacts, patent Hydration Status: adequate Drug: DAWN Schmidt Mar 19, 2017 13:48
--- NOTE | 2017-03-19 13:50 | 48 Hour Post Anesthesia Eval ---
Post Anesthesia Evaluation Procedure: endoscopyBCIR pouch Date of Evaluation: Mar 19, 2017 Time of Evaluation: 13:50 Blood Pressure Systolic: 102 0: 65 Pulse Rate: 67 Respiratory Rate: 18 Temperature (Fahrenheit): 97.5 O2 Sat by Pulse Oximetry: 100 Airway: patent Nausea: No Vomiting: No Pain Intensity: 0 Hydration Status: adequate Cardiopulmonary Status: stable Mental Status/LOC: patient returned to baseline Post-Anesthesia Complications: none Follow-up care needed: N/A DAWN MILIAN Mar 19, 2017 13:50
[2017-03-19] MEDS ORDERED: NS Irrig 1000ml ONE (14:34)
[2017-03-19] MEDS: D5 1/4NS w/KCl 20mEq 1,000 ML IV SCH (15:34)
[2017-03-19] MEDS: Ascorbic Acid 500mg tab ORAL PRN (15:37)
--- NOTE | 2017-03-19 16:32 | Procedure Note ---
DATE OF PROCEDURE: 03/19/2017 ENDOSCOPY PROCEDURE REPORT ENDOSCOPIST: Dago Mancuso M.D. ANESTHESIOLOGIST: Sunita Lebron M.D. PRE-ENDOSCOPY DIAGNOSES: 1. Malfunctioning Dueñas continent ileostomy with painful difficult intubations 2. History of ulcerative colitis. 3. 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 POST-ENDOSCOPY DIAGNOSES: 1. Malfunctioning Dueñas continent ileostomy with painful difficult intubations 2. History of ulcerative colitis. 3. 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 ENDOSCOPY PERFORMED: Dueñas continent ileostomy pouch endoscopy. FINDINGS: Edema of the nipple valve segment with a normal pouch and straight access segment. The distance from the stoma orifice to the tip of the valve was slightly redundant at 10 cm. DESCRIPTION OF PROCEDURE: Prior to any sedation or procedure being performed, the patient was examined. She is well developed and well nourished, in no distress. She has an indwelling Menezes catheter in her pouch controlled with a plug, which she has been releasing intermittently to drain the contents. The abdomen is soft, flat, and nontender. The midline incision is well healed. The stoma in the right lower quadrant is well healed. Examination of the perineum reveals the perineal incision to be well healed. Extremities are without edema. The patient was positioned supine in the GI lab and in view of her significant pain with catheterizing her pouch during intubations, I felt that sedation was required and this was administered by the anesthesiologist. Using a GIF-P140 endoscope, I entered the stoma and under direct vision, entered the pouch. There was some thick material that I could not suction out, so I removed the scope and inserted a 28-Citizen [place] Menezes catheter into the pouch. With some manipulation, I was able to get it into the pouch itself and irrigate it clear. I then reintroduced the endoscope. The pouch was distensible, but insufflation was kept to a minimum because she is only four weeks postoperative. The mucosa of the pouch looks completely normal. Retroflexed views revealed a well-formed nipple valve, which was mildly edematous. Withdrawal views confirmed the above findings. I was then able to insert a 28-[place]izen [place] Menezes catheter well into the pouch and confirmed good placement with irrigation, taped it to the skin, placed a dressing over the stoma, and connected the catheter to a continuous drainage bag. The patient will be maintained in this manner overnight and in the morning, the indwelling catheter will be removed and she will start again on self intubations with supervision by the nursing staff. The patient tolerated the endoscopy well. Dago Mancuso M.D. DR: RASHARD JOB#: [id number] CC: SACHI
[2017-03-20] VITALS: BP 95/64
[2017-03-20] MEDS: D5 1/4NS w/KCl 20mEq 1,000 ML IV SCH (02:52)
[2017-03-20 04:00] VITALS: BP 111/67
[2017-03-20 04:53] LABS: BASOPHILS % (AUTO) 1.3 % (0.0-2.0); EOSINOPHILS % (AUTO) 4.7 % (0.0-3.0); HEMATOCRIT 34.7 % (37.0-47.0); HEMOGLOBIN 11.4 G/DL (12.0-16.0); LYMPHOCYTES % (AUTO) 36.3 % (20.0-45.0); MEAN CORPUSCULAR VOLUME 87 FL (80-99); MONOCYTES % (AUTO) 10.1 % (1.0-10.0); NEUTROPHILS % (AUTO) 47.6 % (45.0-75.0); PLATELET COUNT 345 K/UL (150-450); RED BLOOD COUNT 3.97 M/UL (4.20-5.40); RED CELL DISTRIBUTION WIDTH 14.9 % (11.6-14.8); WHITE BLOOD COUNT 7.1 K/UL (4.8-10.8)
[2017-03-20 05:25] LABS: ALANINE AMINOTRANSFERASE 37 U/L (12-78); ALBUMIN 3.4 G/DL (3.4-5.0); ALBUMIN/GLOBULIN RATIO 1.1 (1.0-2.7); ALKALINE PHOSPHATASE 44 U/L (46-116); ANION GAP 6 mmol/L (5-15); ASPARTATE AMINO TRANSFERASE 24 U/L (15-37); BILIRUBIN,TOTAL 0.4 MG/DL (0.2-1.0); BLOOD UREA NITROGEN 5 mg/dL (7-18); CALCIUM 9.1 MG/DL (8.5-10.1); CARBON DIOXIDE 25 MMOL/L (21-32); CHLORIDE 105 MMOL/L (98-107); CREATININE 0.6 MG/DL (0.55-1.30); POTASSIUM 3.9 MMOL/L (3.5-5.1); SODIUM 136 MMOL/L (136-145)
[2017-03-20] MEDS: Ascorbic Acid 500mg tab ORAL PRN ×4 (08:04→16:39)
--- NOTE | 2017-03-20 08:49 | General Progress Note ---
Progress Note Progress Note AVSS Comfortable overnight with decreased pelvic pain/pressure. Dueñas pouch continent ileostomy drained well overnight but required additional flushing for very thick effluent. Eating well Abdomen soft, flat, non-tender Since 4pm yesterday: urine 1350 BCIR ileo 545 Labs after 20 hours of IV hydration: WBC 7100 Hgb 11.4 (13.4 on admission) Platelets 345,000 BMP - wnl Albumin 3.4 (4.1 pre-hydration) Imp. Improved Plan: RN supervised BCIR self-intubations Vitamin C with each meal and between meals prn; grape juice - need to thin the Dueñas Pouch output Will use Xylocaine Gel as lubricant for her catheter to see if it will make her intubations less painful If does well today will discharge in AM tomorrow MARIAMA MEJIAS Mar 20, 2017 08:49
[2017-03-20] MEDS: Lidocaine HCl 2% Jelly 5ml Tube TOPIC SCH ×4 (09:31→21:00)
[2017-03-20] MEDS ORDERED: Norco 5mg/325mg tab ORAL PRN (10:00)
[2017-03-20 11:42] VITALS: BP 113/69
--- NOTE | 2017-03-20 15:33 | General Progress Note ---
Progress Note Progress Note Has intubated successfully twice. vitamin C effective in thinning the effluent. Able to eat and drink fluids Vaginal discharge: digital vaginal exam with healing posterior ridge from surgery 1 month ago, no retained secretions Imp. Improved Plan: Continue RN supervised Dueñas pouch self-intubations Anticipate discharge in MARIAMA MOTA Mar 20, 2017 15:33
[2017-03-20 16:15] VITALS: BP 103/64
[2017-03-20 20:00] VITALS: BP 108/75
[2017-03-21 00:13] VITALS: BP 96/62
[2017-03-21] MEDS: Lidocaine HCl 2% Jelly 5ml Tube TOPIC SCH ×3 (01:00→09:00)
[2017-03-21 08:00] VITALS: BP 105/66
--- NOTE | 2017-03-21 08:43 | General Progress Note ---
Progress Note Progress Note AVSS Has been able to intubate her Dueñas Pouch with assist by RNs. Much less pain with intubating and able to eat without bloating or cramping. Taking Vitamin C and grape juice to thin the effluent Abdomen soft, non-distended, non-tender Urine 2650 BCIR ileo 535 Imp. Doing well now and pre-admission issues resolved Plan: Discharge with full supplies/limitations/instructions provided/discussed To begin q4h intubations tomorrow f/u office 1 week and prn MARIAMA MEJIAS Mar 21, 2017 08:43
[2017-03-21] MEDS: Ascorbic Acid 500mg tab ORAL PRN (09:16)
--- NOTE | 2017-03-25 08:43 | Discharge Summary ---
Discharge Summary Hospital Course Date of Admission Mar 19, 2017 at 14:33 Date of Discharge Mar 21, 2017 at 11:30 Admitting Diagnosis Malfunctioning Dueñas Continent Ileostomy with painful difficult intubations Reason for Hospitalization: elective surgery Scheduled for Dueñas continent ileostomy pouch endoscopy [facility] Dara Dodge is a 21 year old female who was admitted on Mar 19, 2017 at 14:33 for Malfunctioning Dueñas Ileostomy Continent with painful difficult intubations Patient was scheduled for elective surgery on 03/19/17 Procedures s/p 03/[address] Jamee Dueñas continent ileostomy pouch endoscopy Hospital Course s/p surgery initially after surgery, overnight -catheter to continuous drainage catheter was removed in AM patient was subsequently started on RN supervised BCIR self-intubations Vitamin C with each meal and between meals prn; grape juice - need to thin the Dueñas Pouch output Xylocaine Gel as lubricant for catheter to make intubations less painful Patient was able to intubate successfully vitamin C was effective in thinning the effluent. Patient was able to eat and drink fluids labs and VS stable Pre-admission issues were resolved Patient was cleared for discharge with full supplies/limitations/instructions provided/discussed Begin q4h intubations tomorrow F/u with surgeon in office 1 week and prn DISCHARGE DIAGNOSIS Malfunctioning Dueñas Continent Ileostomy with painful difficult intubations History of ulcerative colitis. Status post proctocolectomy with creation of a Dueñas continent ileostomy on . Status post 03/19 Dueñas Continent Ileostomy pouch endoscopy Discharge Condition Upon Discharge: stable Discharge Disposition Patient was discharged to Home (01) Discharge Diagnoses: Discharge Instructions Discharge Instructions Special Instructions I have been assigned to complete a D/C Summary on this account. I was not involved in the patient management Jael Delong NP ([place]te[place]) Mar 25, 2017 08:43
== END 2017-03-21 11:30 | disposition home or self-care (01) | DRG 394 ==
LOC: GAS 11:32 → UNDOADMOB 14:33 → 3E 14:33 → OBSVTOIN 14:33 → INTOOBSV 14:33
PROC: 0DJD8ZZ Inspection of Lower Intestinal Tract, Via Natural or Artificial Opening Endoscopic (ICD-10-PCS; principal; 2017-03-19 13:03)
DX: K94.13 Enterostomy malfunction (principal); K91.850 Pouchitis; K51.90 Ulcerative colitis, unspecified, without complications; F41.9 Anxiety disorder, unspecified; Y73.3 Surgical instruments, materials and gastroenterology and urology devices (including sutures) associated with adverse incidents; Y83.3 Surgical operation with formation of external stoma as the cause of abnormal reaction of the patient, or of later complication, without mention of misadventure at the time of the procedure; Y92.019 Unspecified place in single-family (private) house as the place of occurrence of the external cause
CPT/HCPCS: 36415; 80053; 81025; 85025; 85610; 85730; 87081; 94003; 94150; 96360; 96361

== ENCOUNTER 2017-08-09 23:25 | Inpatient (IN) | payer BC ==
[~2017-08-09] VITALS: Ht 165.1 cm; Wt 63.5 kg
[2017-08-09 02:30] VITALS: BP 110/77
[~2017-08-09 23:25] MED LIST changes: -D5 1/4NS w/KCl 20mEq 1,000 ML IV SCH; +NO KNOWN MEDS
[2017-08-09 23:40] VITALS: BP 109/75
--- NOTE | 2017-08-09 23:59 | Emergency Room Report ---
History of Present Illness General Chief Complaint: Abdominal Pain Source: Patient Present Illness HPI This is a 21-year-old female with a history of ulcer colitis requiring surgery. This was done by Dr. Kellogg. She had a BCIR done. For the last 3 weeks she been complaining of pain and problem with It. Now unable to cannulize it. She presents with abdominal pain and problem to that area. No fever chills but no nausea no vomiting. No incontinence of bowel or urine. Sent in by surgeon for admission for possible revision. Pain is 7 out of 10. she does not want pain medication. Allergies: Coded Allergies: DIPHENHYDRAMINE (Verified Allergy, Severe, 03/19/17) SEVERE PANIC ATTACK Patient History Past Medical History: see triage record, old chart reviewed Past Surgical History: other Pertinent Family History: none Social History: Denies: smoking Last Menstrual Period: 08/04/17 Now: No Immunizations: other Reviewed Nursing Documentation: PMH: Agreed; PSxH: Agreed Nursing Documentation-PMH Past Medical History: No History, Except For Hx Cardiac Problems: No Hx Cancer: No Hx Gastrointestinal Problems: Yes - BCIR surgery, Ulcerative Colitis Hx Neurological Problems: No Hx Cerebrovascular Accident: No Review of Systems Eye: Denies: eye pain, blurred vision ENT: Denies: ear pain, nose congestion, throat swelling Respiratory: Denies: cough, shortness of breath Cardiovascular: Denies: chest pain, palpitations Gastrointestinal: Reports: abdominal pain; Denies: diarrhea, nausea, vomiting Musculoskeletal: Denies: back pain, joint pain Skin: Denies: rash Neurological: Denies: headache, numbness Endocrine: Denies: increased thirst, increased urine Hematologic/Lymphatic: Denies: easy bruising All Other Systems: negative except mentioned in HPI Physical Exam Vital Signs Date Time Temp Pulse Resp B/P (MAP) Pulse Ox O2 Delivery O2 Flow Rate FiO2 08/09/17 23:29 98.0 89 16 109/75 99 Room Air 98.1 vitals normal Sp02 EP Interpretation: reviewed, normal General Appearance: well appearing, no apparent distress, alert Head: normocephalic, atraumatic Eyes: bilateral eye PERRL, bilateral eye EOMI ENT: hearing grossly normal, normal pharynx Neck: full range of motion, supple, no meningismus Respiratory: chest non-tender, lungs clear, normal breath sounds Cardiovascular #1: regular rate, rhythm, no murmur Gastrointestinal: normal bowel sounds, non tender, no mass, no organomegaly, no bruit, non-distended, other - midline surgical scar. Ostomy clean. Musculoskeletal: back normal, gait/station normal, normal range of motion Neurologic: alert, oriented x3 Psychiatric: mood/affect normal Skin: warm/dry Medical Decision Making Diagnostic Impression: Primary Impression: malfunctioning Dueñas Continent Ileostomy with painful difficult intubations ER Course Patient presents with malfunction of her Dueñas incontinence ileostomy. May have some obstruction or stenosis. Will admit for surgical evaluation. I have discussed this patient with Dr. Mancuso, who called in earlier. Last Vital Signs Date Time Temp Pulse Resp B/P (MAP) Pulse Ox O2 Delivery O2 Flow Rate FiO2 08/09/17 23:29 98.0 89 16 109/75 99 Room Air 98.1 Status: unchanged Disposition: ADMITTED INPATIENT Condition: Serious Referrals: MARIAMA MANCUSO (PCP) MOLLY UHTTON M.D. Aug 09, 2017 23:59
[2017-08-10 00:26] LABS: ANION GAP 8 mmol/L (5-15); BLOOD UREA NITROGEN 11 mg/dL (7-18); CALCIUM 9.3 MG/DL (8.5-10.1); CARBON DIOXIDE 29 MMOL/L (21-32); CHLORIDE 102 MMOL/L (98-107); CREATININE 0.7 MG/DL (0.55-1.30); POTASSIUM 3.7 MMOL/L (3.5-5.1); SODIUM 139 MMOL/L (136-145)
[2017-08-10 00:30] LABS: APPEARANCE,URINE CLEAR; BILIRUBIN, URINE NEGATIVE (NEGATIVE); GLUCOSE, URINE (UA) NEGATIVE (NEGATIVE); KETONES,URINE NEGATIVE (NEGATIVE); LEUKOCYTE ESTERASE ,URINE 1+ (NEGATIVE); NITRITE,URINE NEGATIVE (NEGATIVE); PH,URINE 5 (4.5-8.0); PROTEIN,URINE 1+ (NEGATIVE); UROBILINOGEN,URINE NORMAL MG/DL (0.0-1.0)
[2017-08-10 00:34] LABS: COLOR,URINE YELLOW
[2017-08-10 00:47] LABS: BASOPHILS % (AUTO) 2.2 % (0.0-2.0); EOSINOPHILS % (AUTO) 2.1 % (0.0-3.0); HEMATOCRIT 41.4 % (37.0-47.0); HEMOGLOBIN 14.3 G/DL (12.0-16.0); LYMPHOCYTES % (AUTO) 37.1 % (20.0-45.0); MEAN CORPUSCULAR VOLUME 84 FL (80-99); MONOCYTES % (AUTO) 11.7 % (1.0-10.0); NEUTROPHILS % (AUTO) 46.8 % (45.0-75.0); PLATELET COUNT 378 K/UL (150-450); RED BLOOD COUNT 4.92 M/UL (4.20-5.40); RED CELL DISTRIBUTION WIDTH 12.1 % (11.6-14.8); WHITE BLOOD COUNT 7.6 K/UL (4.8-10.8)
[2017-08-10 01:23] VITALS: BP 110/72
[2017-08-10] MEDS ORDERED: LORazepam 1mg tab ORAL PRN (02:15)
[2017-08-10] MEDS ORDERED: D5 1/2NS w/KCl 20mEq 1,000 ML IV SCH (02:15)
[2017-08-10 04:00] VITALS: BP 92/55
[2017-08-10 08:00] VITALS: BP 137/89
--- NOTE | 2017-08-10 10:10 | Diagnostic Imaging Report ---
Indication: Abdominal pain Technique: CT of the abdomen and pelvis utilizing automated exposure control with intravenous and oral contrast. Venous scanning performed. CT dose: Total DLP 660 mGycm; CTDI vol 13.5 mGy Comparison: 02/27/2017 Findings: Lung bases are clear. The liver, adrenal glands, spleen and pancreas are unremarkable. Gallbladder is contracted without CT dense gallstones. Kidneys are unremarkable. The small bowel loops are normal in caliber. There is a continent ileostomy. There is again evidence of colectomy. Uterus is grossly unremarkable. Bladder is grossly unremarkable. The osseous structures demonstrate no acute abnormality. Lobulated fluid-containing structures are seen within the pelvis in the presacral location extending to the bilateral parauterine pelvis measuring approximately 9.5 x 6.5 cm in the presacral location. Soft tissue densities in the right parauterine and left posterior pelvic location surrounded by the fluid collections are likely related to the adnexa/ovaries. There is no air within these fluid collections. No contrast is seen within these fluid collections. Impression: Redemonstration of colectomy and continent ileostomy. Lobulated fluid-containing structures within the pelvis in the presacral location measuring 9.5 x 6.5 cm extending to the bilateral anterior parauterine pelvis. Soft tissue densities in the right parauterine and left posterior pelvic locations surrounded by the fluid collections likely represent the ovaries/adnexa. No air or contrast seen within the pelvic fluid collections. Findings are nonspecific and could represent postoperative fluid collections. Other etiologies related to the adnexa not completely excluded. Further evaluation recommended as indicated. . The CT scanner at [facility] is accredited by the [employer] and the scans are performed using protocols designed to limit radiation exposure to as low as reasonably achievable to attain images of sufficient resolution adequate for diagnostic evaluation.
--- NOTE | 2017-08-10 10:48 | General Progress Note ---
Progress Note Progress Note Admitted from ED just after midnight with persistent abdominal and pelvic pain and severe difficulty intubating and evacuating her Dueñas continent ileostomy pouch. Able to insert first a 24 Fr Blake into pouch, then a 28 Fr blake with good output and much less abdominal/pelvic discomfort and pain Abdomen soft, flat, non-tender. Stoma RLQ well formed with indwelling catheter in place Perineum - no visible opening (drained large amount clear fluid several days ago at the [facility]) WBC 7600 hgb 14.3 BMP -wnl Imp. Malfunctioning Dueñas Continent Ileostomy Abdominal and pelvic pain, with recent history of large drainage via perineum scar from proctectomy Plan: clear liquid diet INR, CMP, preg. test Review CT abd+pelvis performed early this AM Tomorrow : Dueñas pouch endoscopy and pouchogram May need surgical revision of stoma or access segment or pouch MARIAMA MEJIAS Aug 10, 2017 10:48
[2017-08-10 12:00] VITALS: BP 101/60
--- NOTE | 2017-08-10 15:45 | Pre-op HX & Phy Repo 2 SIG ---
DATE OF ADMISSION: 08/10/2017 EMERGENCY ADMISSION HISTORY AND PHYSICAL HISTORY OF PRESENT ILLNESS: Admitted from the emergency department on August 10, 2017, at 00:17 hours (just past midnight of August 09, 2017). The patient is a 21-year-old female in overall good health, who presents with persistent and progressive abdominal and pelvic pain, drainage of fluid from her perineum from recent proctectomy, and severe difficulty with catheterizing her Dueñas continent ileostomy pouch as well as difficulty evacuating her pouch. Recently, she has been only able to insert a 24-C[place] Verdean catheter instead of her usual 30-C[place]an catheters and she is having increasing difficulty with a 24-[place]an catheter. She presented with these progressive complaints to the emergency room for evaluation. She had stable vital signs and had been able to maintain adequate hydration clinically. A 24-C[place] Verdean Menezes catheter was manipulated into the pouch, but minimal drainage was achieved, but with additional manipulation, a 28-C[place] Ver[place]an Menezes catheter was inserted and taped in place and connected to a continuous gravity drainage bag for regular irrigations. Once this was accomplished, the patient's abdominal pressure and pain improved, but she has persistent pelvic pain. The patient has past history of intractable ulcerative colitis and underwent surgery on February 18, 2017, including proctocolectomy with creation of a Dueñas type of Kock pouch continent ileostomy. She was discharged on March 04, 2017 doing well. The patient did well, progressively increasing the interval between self intubations, and eating normally. However in April 2014, she began developing an aching pelvic pain and had some evaluations where she is living in [place]. Ultrasound and CT scan revealed fluid in the presacral space and bilateral adnexal areas. There was initial concern for ovarian neoplasm, but further review revealed most likely this was loculated postoperative fluid. In May and June 2017 the patient had progressive initially mild and later more severe difficulty intubating her pouch, stating that it felt very tight and it would take several minutes for the catheter to enter. She also stated that once the catheter was in the pouch, she would have no drainage despite normal consistency to the effluent, unless she performed abdominal contortions bending her body and twisting her body to get fluid to evacuate. She was advised that this was extremely abnormal and unusual. Finally, she had difficulty intubating except for a 24-Cape Verdean catheter. An opening in the perineal scar developed and a large quantity of which she describes as clear fluid drained and she briefly had relief of her pelvic pressure and transient relief of her pelvic pain, but these recurred within 48 hours. 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 ALLERGIES TO MEDICATIONS: None. OPERATIONS: Only the above. REVIEW OF SYSTEMS: The patient has regular menstrual periods. She is nulliparous. She denies being at the present time. PHYSICAL EXAMINATION: GENERAL: She is well developed, appears well nourished pending laboratory studies including total protein and albumin, and complains of less pain with continuous drainage of her pouch, but continued discomfort especially in the pelvis. HEENT: Within normal limits. LUNGS: Clear. HEART: Regular rhythm. BREASTS: Without masses. ABDOMEN: Soft with a midline incision well healed. The stoma of the Dueñas pouch is low in the right lower quadrant and well healed. PELVIC: Per terry cloth cutter hand recently and not repeated. RECTAL: Status post proctectomy with no evidence of a sinus tract in the perineum at this time. EXTREMITIES: Without edema. Pulses 2+, femoral to pedal bilaterally. NEUROLOGIC: Physiologic. IMPRESSION: 1. Progressive abdominal and pelvic pain and pressure. 2. Severely malfunctioning Dueñas continent ileostomy with progressive inability to intubate and evacuate. 3. History of ulcerative colitis. 4. Status post proctocolectomy with creation of a Dueñas continent ileostomy on February 18, 2017. PLAN: The patient will be maintained n.p.o. until CT scan of the abdomen and pelvis with oral and IV contrast can be obtained. If this reveals no obstructive pathology now that there is an indwelling catheter and continuous drainage of her continent ileostomy pouch, she will be started on a clear-liquid diet. She will be prepared for a pouch endoscopy and a pouchogram retrograde contrast x-ray study. As guided by the CT scan findings, Interventional Radiology will be consulted for CT-guided aspiration and drainage of all the fluid collections. I have discussed this in detail with the patient. She understands and agrees to proceed as planned. Dago Mancuso M.D. DR: Christa JOB#: [id number] CC: SACHI
[2017-08-10 16:00] VITALS: BP 100/66
[2017-08-10 20:00] VITALS: BP 96/64
[2017-08-11] VITALS (7 sets, daily range): BP systolic 91–112; BP diastolic 61–71
[2017-08-11 08:07] LABS: BASOPHILS % (AUTO) 1.8 % (0.0-2.0); EOSINOPHILS % (AUTO) 2.6 % (0.0-3.0); HEMATOCRIT 41.9 % (37.0-47.0); HEMOGLOBIN 14.6 G/DL (12.0-16.0); LYMPHOCYTES % (AUTO) 40.1 % (20.0-45.0); MEAN CORPUSCULAR VOLUME 84 FL (80-99); MONOCYTES % (AUTO) 10.3 % (1.0-10.0); NEUTROPHILS % (AUTO) 45.2 % (45.0-75.0); PLATELET COUNT 362 K/UL (150-450); RED BLOOD COUNT 4.96 M/UL (4.20-5.40); RED CELL DISTRIBUTION WIDTH 11.8 % (11.6-14.8); WHITE BLOOD COUNT 5.5 K/UL (4.8-10.8)
[2017-08-11 08:27] LABS: ALANINE AMINOTRANSFERASE 20 U/L (12-78); ALBUMIN/GLOBULIN RATIO 1.1 (1.0-2.7); ALKALINE PHOSPHATASE 48 U/L (46-116); ANION GAP 9 mmol/L (5-15); ASPARTATE AMINO TRANSFERASE 18 U/L (15-37); BILIRUBIN,TOTAL 1.1 MG/DL (0.2-1.0); BLOOD UREA NITROGEN 8 mg/dL (7-18); CALCIUM 9.2 MG/DL (8.5-10.1); CARBON DIOXIDE 25 MMOL/L (21-32); CHLORIDE 105 MMOL/L (98-107); CREATININE 0.7 MG/DL (0.55-1.30); POTASSIUM 4.3 MMOL/L (3.5-5.1); SODIUM 139 MMOL/L (136-145)
[2017-08-11 08:32] LABS: BILIRUBIN,DIRECT 0.3 MG/DL (0.0-0.3)
--- NOTE | 2017-08-11 08:35 | General Progress Note ---
Progress Note Progress Note AVSS Comfortable now that there is continuous drainage of Dueñas Continent Ileostomy Abdomen soft, perineum dry Albumin 4.[address] scan: considerable fluid in lower abdomen and pelvis with distortion of the Dueñas pouch - this could be causing her symptoms and difficulties Imp: Abdominal pain - resolved Malfunctioning Dueñas Continent Ileostomy Intra-abdominal and pelvic fluid collections Plan; BCIR pouch endoscopy today CT guided drainage in MARIAMA MOTA Aug 11, 2017 08:35
--- NOTE | 2017-08-11 13:00 | Pre-Procedure Note/Attestation ---
Pre-Procedure Note/Attestation Complete Prior to Procedure Planned Procedure: not applicable Procedure Narrative: Dueñas continent ileostomy pouch endoscopy Indications for Procedure Pre-Operative Diagnosis: malfunctioning Dueñas pouch with difficulty intubating and evacuating Attestation I attest that I discussed the nature of the procedure; its benefits; risks and complications; and alternatives (and the risks and benefits of such alternatives ), prior to the procedure, with the patient (or the patient's legal field service representative). I attest that, if there was a reasonable possibility of needing a blood transfusion, the patient (or the patient's legal field service representative) was given the [facility] standardized written summary, pursuant to the Armando Linda Blood Safety Act ([place] Health and Safety Code # 1645, as amended). I attest that I re-evaluated the patient just prior to the surgery and that there has been no change in the patient's H&P, except as documented below: none MARIAMA MEJIAS Aug 11, 2017 13:00
--- NOTE | 2017-08-11 13:45 | Brief Operative Note ---
Immediate Post Operative Note Operative Note Pre-op Diagnosis: malfunctioning Dueñas pouch with difficulty intubating and evacuating Procedure: Dueñas pouch endoscopy Post-op Diagnosis: redundant access segment (12cm to valve tip); pouch and valve normal Post-op Diagnosis: same as pre-op Findings: consistent w/pre-op dx studies Surgeon: valerio Anesthesia: other - none Specimen: none Complications: none Condition: stable Fluids: none Estimated Blood Loss: none Drains: other - 28 Fr blake to Dueñas Pouch Implant(s) used?: MARIAMA Lindsay Aug 11, 2017 13:45
--- NOTE | 2017-08-11 23:31 | Procedure Note ---
DATE OF PROCEDURE: 08/11/2017 ENDOSCOPY REPORT ENDOSCOPIST: Dago Mancuso M.D. ANESTHESIA: None. SEDATION: None. PRE-ENDOSCOPY DIAGNOSES: 1. Malfunctioning Dueñas continent ileostomy with progressive difficulty with intubation and evacuation. 2. History of ulcerative colitis. 3. Status post proctocolectomy with creation of Dueñas continent ileostomy February 18, 2017. POST-ENDOSCOPY DIAGNOSES: 1. Malfunctioning Dueñas continent ileostomy with progressive difficulty with intubation and evacuation. 2. History of ulcerative colitis. 3. Status post proctocolectomy with creation of Dueñas continent ileostomy February 18, 2017. ENDOSCOPY PERFORMED: Dueñas continent ileostomy pouch endoscopy. FINDINGS: Elongation of the access segment with the distance from the mucocutaneous junction of the stoma to the tip of the valve is 12 cm. Prior endoscopy in March 2017 was measured at 10 cm. The expected length is 7-8cm in this patient. There was also noted some distortion of the pouch cephalad from the known intraabdominal and pelvic fluid collection. The access segment is quite straight. DESCRIPTION OF PROCEDURE: The patient was positioned supine in the GI lab without any anesthesia or sedation given or required. Using a GIF-P140 endoscope, the stoma in the right lower quadrant was entered. The elongated and slightly redundant access segment has slight angulation, but the pouch was readily entered and is quite distensible. The pouch mucosa was completely normal. Retroflexed views revealed a circumferentially well-formed nipple valve. Withdrawal views confirmed the above findings. After removal of the endoscope, I was able to insert a 28-Macanese Menezes catheter with slight manipulation and noted that it traversed more cephalad than what would be expected as it should go transverse and caudad. The catheter was secured with tape to the skin and connected to a gravity drainage bag and a dressing applied over the stoma. The patient tolerated the endoscopy well and will undergo CT-guided drainage of her lower abdominal and pelvic fluid collections. Dago Mancuso M.D. DR: LISA JOB#: [id number] CC: SACHI
[2017-08-12] VITALS (21 sets, daily range): BP systolic 93–120; BP diastolic 58–70
--- NOTE | 2017-08-12 08:26 | General Progress Note ---
Progress Note Progress Note AVSS. Doing well with indwelling BCIR catheter to drainage. Urine 1999 BCIR ileo 750 Imp. Stable Plan: CT guided drainage of abd-pelvic fluid this AM MARIAMA MEJIAS Aug 12, 2017 08:26
[2017-08-12] MEDS ORDERED: fentaNYL 100 mcg/2 mL IV ONE (09:22)
[2017-08-12] MEDS ORDERED: Midazolam 2mg/2ml Inj ONE (09:22)
[2017-08-12] MEDS ORDERED: Lidocaine 1% Plain 30 ml INJ ONE (09:28)
--- NOTE | 2017-08-12 10:05 | Pre-Procedure Note/Attestation ---
Pre-Procedure Note/Attestation Complete Prior to Procedure Planned Procedure: not applicable Procedure Narrative: CT-guided aspiration and possible drainage of pelvic fluid collection Attestation I attest that I discussed the nature of the procedure; its benefits; risks and complications; and alternatives (and the risks and benefits of such alternatives ), prior to the procedure, with the patient (or the patient's legal insurance healthcare representative). I attest that, if there was a reasonable possibility of needing a blood transfusion, the patient (or the patient's legal insurance healthcare representative) was given the [facility] standardized written summary, pursuant to the Armando Linda Blood Safety Act ([place] Health and Safety Code # 1645, as amended). I attest that I re-evaluated the patient just prior to the surgery and that there has been no change in the patient's H&P, except as documented below: KJ BENDER M.D. Aug 12, 2017 10:05
--- NOTE | 2017-08-12 10:48 | Moderate Sedation - Procedural ---
Moderate Sedation HPI Home Medication Reported Medications [No Known Meds] No Conflict Check 03/19/17 Patient History Allergies: Coded Allergies: DIPHENHYDRAMINE (Verified Allergy, Severe, 03/19/17) SEVERE PANIC ATTACK Pre-Procedural Mod Sedation Pre-Assessment Time: 10:15 Pre-Sedation Assessment: Elective Airway Assessment (Malampati): III Evaluation Hx of untoward rxns to mod sed: No Procedures/Plans: Radiology Plan for Moderate Sedation: Midazolam, Fentanyl ASA Score: II Informed Consent The nature of the procedure/sedation; its benefits; risks and complications; and alternatives (and the risks and benefits of such alternatives) were discussed with the patient (or their legal quality audit representative), prior to the procedure. All questions were answered to the patient's (or their legal quality audit representative's) satisfaction and the patient (or their legal quality audit representative) gave informed consent to the procedure. I attest that I re-evaluated the patient just prior to the surgery and that there has been no change in the patient's H&P, except as documented below: Post Procedure Assessment Post Procedure TIme: 10:45 Communication: No Apparent Limitation Mental Status: Awake Respiration: Unlabored Skin Condition: WNL Adomen: WNL Nausea: NO Vomiting: NO KJ BENDER M.D. Aug 12, 2017 10:48
[2017-08-12] MEDS ORDERED: Morphine Sulfate 2mg/ml Inj IVP ONE (11:35)
--- NOTE | 2017-08-12 11:39 | Brief Operative Note ---
Immediate Post Operative Note Operative Note Chief Complaint: malfunctioning pouch Pre-op Diagnosis: pelvic collection Procedure: CT guided aspiration Post-op Diagnosis: same as pre-op Findings: consistent w/pre-op dx studies Surgeon: Jessica BENDER Anesthesia: moderate sedation Specimen: yes - fluid sent to lab Complications: none Condition: stable Fluids: none Implant(s) used?: No KJ BENDER M.D. Aug 12, 2017 11:39
--- NOTE | 2017-08-12 12:07 | Diagnostic Imaging Report ---
Indication: Abdominal distention. Difficulty cannulating ileostomy pouch. Abnormal pelvic fluid collection demonstrated on recent CT scan Technique: Prior imaging studies reviewed. Informed consent obtained prior to commencement of the procedure. Procedure timeout performed. Procedure performed with moderate sedation. Localizing CT images obtained. Anterior approach selected. Initially, attempt made at puncturing the pelvic collection using a 7 Turkmen Silva-Aragon catheter using trocar technique. However, the catheter would not pass easily into the collection, and the patient experienced significant pain. It was therefore elected to proceed using Seldinger technique. A 21-gauge AccuStick needle was directed into the collection, followed by insertion of 0.018 guidewire, insertion 6 Turkmen AccuStick introducer system, stiffener and dilator removed, 0.035 guidewire inserted, CT images obtained documenting satisfactory position of the guidewires. This was followed by introduction of an 8.5 Turkmen Cook pigtail drainage catheter. This was used to forcefully evacuate the pelvic contents. Approximate 400 mL of clear yellow serous fluid was aspirated. Follow-up CT scan again, demonstrating complete emptying of the left-sided and posterior components of the collection. A residual right-sided collection persists, presumably not communicating. The catheter was then removed as given the grossly noninfected appearance of the fluid continued catheter drainage was not indicated. The patient tolerated the procedure well, without immediate complication. Specimen was sent to the lab for cytology and microbial analysis Total dose length product 1304 mGycm. CTDIvol(s) 15, 1705 mGy Comparison: Reference made to CT scan dated 08/10/2017 Findings: As above. Evacuation of the left and posterior collection noted on completion images, with persistence of the 6 cm diameter right sided collection Impression: Successful aspiration of pelvic fluid collection, yielding approximate 400 mL of clear yellow serous fluid and resulting in complete evacuation of the central and left-sided components. Note presence of a separate locule in the right adnexal region. Note that per discussion with referring surgeon, it is highly unlikely that the evacuated lesion represents an adnexal cystic tumor, given that this was not visible at the time of surgery and therefore presumably represents a postoperative collection. Nonetheless, a specimen was sent for cytological analysis as well as microbial analysis
[2017-08-12] MEDS: Norco 5mg/325mg tab ORAL PRN (16:49)
[2017-08-13] VITALS (7 sets, daily range): BP systolic 90–119; BP diastolic 54–66
[2017-08-13] MEDS ORDERED: LORazepam 1mg tab ORAL ONE (08:00)
--- NOTE | 2017-08-13 08:18 | General Progress Note ---
Progress Note Progress Note AVSS Some lingering pain from CT guided aspiration procedure with puncture in medial aspect of LLQ Abdomen soft Ileo catheter irrigated and removed Imp: S/P aspiration 400cc pelvic fluid (R sided adnexal collection persists Plan: RN supervised BCIR self-intubations q3h - if continues to have difficulty will schedule surgery for redundant, elongated access segment. MARIAMA MEJIAS Aug 13, 2017 08:18
[2017-08-13] MEDS: Ascorbic Acid 500mg tab ORAL PRN ×2 (10:16→18:43)
--- NOTE | 2017-08-13 13:28 | Anethesia Preoperative Eval ---
Anesthesia Pre-op PMH/ROS General Date of Evaluation: Aug 13, 2017 Time of Evaluation: 13:33 Anesthesiologist: CLYDE ASA Score: ASA 2 Mallampati Score Class I : Soft palate, uvula, fauces, pillars visible Class II: Soft palate, uvula, fauces visible Class III: Soft palate, base of uvula visible Class IV: Only hard plate visible Mallampati Classification: Class II Surgeon: valerio Diagnosis: abd pain Surgical Procedure: Revision Dueñas pouch Anesthesia History: none Family History: no anesthesia problems Allergies: Coded Allergies: DIPHENHYDRAMINE (Verified Allergy, Severe, 03/19/17) SEVERE PANIC ATTACK Medications: see eMAR Anesthesia Pre-op Phys. Exam Physician Exam Last Vital Signs Date Time Temp Pulse Resp B/P (MAP) Pulse Ox O2 Delivery O2 Flow Rate FiO2 08/13/17 12:00 98.7 80 18 102/66 96 98.7 08/13/17 08:00 Room Air 08/12/17 11:15 3.0 Constitutional: NAD Neurologic: CN 2-12 intact Cardiovascular: RRR Respiratory: CTA Gastrointestinal: S/NT/ND Airway Exam Mallampati Score: Class II MO: full ROM: full Teeth: intact Anesthesia Pre-op A/P Risk Assessment & Plan Plan: GA Status Change Before Surgery: No Pre-Antibiotics Given Within 1 Hr of Incision: Chano Brand M.D. Aug 13, 2017 13:28
--- NOTE | 2017-08-13 15:24 | General Progress Note ---
Progress Note Progress Note Unable to intubate her Dueñas Continent Ileostomy pouch with Medena catheter, and difficulty inserting 28 Fr Menezes as well. Plan: surgery tomorrow - laparotomy with revision Dueñas Pouch and stoma STAT PIC line (poor venous access) pre-op IV antibiotics continuous drainage of Dueñas pouch Full discussion with the patient regarding the nature of the surgery, indications, alternatives, options and risks; all questions answered. MARIAMA MEJIAS Aug 13, 2017 15:24
[2017-08-13] MEDS ORDERED: Lidocaine 1% Plain 30 ml INJ ONE (16:00)
[2017-08-13] MEDS ORDERED: Heparin 2000 units/Ns 1000ml IV ONE (16:00)
--- NOTE | 2017-08-13 17:05 | Diagnostic Imaging Report ---
Indications: Needs long-term IV access Technique: Ultrasound confirms patent compressible left basilic vein. Total sterile technique, including sterile probe cover and sterile gel, hat, mask,, sterile gown, large sterile drape, and preparation with 2% chlorhexidine utilized. Local anesthesia with 1% lidocaine. Under real-time ultrasound guidance, puncture basilic vein using 21-gauge needle, documented and archived, passage 0.018 guidewire under direct fluoroscopy, which was used to determine appropriate catheter length, exchange for 5 Kiswahili peel-away sheath. 5 Kiswahili Bard dual-lumen power PICC cut to 41 cm. It was inserted through the peel-away sheath. However, it would not pass into the axillary vein. There is no manipulations attempted, including placement of a longer peel-away sheath, not successful. 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 After further attempted manipulations, this access was abandoned. The cephalic vein was found to be patent with ultrasound. Local anesthesia with 1% lidocaine. Puncture using 21-gauge needle, passage 0.018 guidewire under direct fluoroscopy, placement of peel-away sheath. 5 Kiswahili Bard dual-lumen PICC cut to 45 cm. Peel-away sheath and guidewire removed. Catheter fixed to the skin. Both catheter ports aspirated and flushed. Patient tolerated procedure well, without immediate complication. Digital radiograph documents satisfactory catheter tip position, at the cavoatrial junction. Total fluoroscopy time 2.7 minutes. Total dose area product 32 dGycm2 Impression: Successful placement of left cephalic vein PICC under sonographic and fluoroscopic guidance, as described above. 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
[2017-08-13] MEDS ORDERED: NS Irrig 1000ml ONE (17:36)
[2017-08-13] MEDS: D5 1/2NS w/KCl 20mEq 1,000 ML IV SCH (18:50)
[2017-08-13] MEDS ORDERED: Ketorolac 30mg Inj IV ONE (19:00)
[2017-08-13] MEDS: Dyna-Hex 2% Top Sol 2oz TOPIC SCH (20:17)
[2017-08-14] VITALS (16 sets, daily range): BP systolic 96–111; BP diastolic 56–71
[2017-08-14 05:02] LABS: BASOPHILS % (AUTO) 0.8 % (0.0-2.0); HEMATOCRIT 37.8 % (37.0-47.0); HEMOGLOBIN 12.6 G/DL (12.0-16.0); LYMPHOCYTES % (AUTO) 26.7 % (20.0-45.0); MEAN CORPUSCULAR VOLUME 85 FL (80-99); NEUTROPHILS % (AUTO) 60.5 % (45.0-75.0); PLATELET COUNT 333 K/UL (150-450); RED BLOOD COUNT 4.46 M/UL (4.20-5.40); RED CELL DISTRIBUTION WIDTH 11.9 % (11.6-14.8); WHITE BLOOD COUNT 8.9 K/UL (4.8-10.8)
[2017-08-14 05:09] LABS: ANION GAP 6 mmol/L (5-15); BLOOD UREA NITROGEN 5 mg/dL (7-18); CALCIUM 8.8 MG/DL (8.5-10.1); CARBON DIOXIDE 27 MMOL/L (21-32); CHLORIDE 105 MMOL/L (98-107); CREATININE 0.6 MG/DL (0.55-1.30); POTASSIUM 3.7 MMOL/L (3.5-5.1); SODIUM 138 MMOL/L (136-145)
[2017-08-14] MEDS ORDERED: Ampicillin/Sulbactam Sod 3 GM in NS 110 ML IVPB SCH (06:00)
[2017-08-14] MEDS: D5 1/2NS w/KCl 20mEq 1,000 ML IV SCH (06:20)
[2017-08-14] MEDS: Norco 5mg/325mg tab ORAL PRN (06:29)
--- NOTE | 2017-08-14 08:32 | Pre-Procedure Note/Attestation ---
Pre-Procedure Note/Attestation Complete Prior to Procedure Planned Procedure: not applicable Procedure Narrative: laparotomy with revision Dueñas continent ileostomy access segment and stoma Indications for Procedure Pre-Operative Diagnosis: malfunctioning Dueñas pouch with difficulty intubating Attestation I attest that I discussed the nature of the procedure; its benefits; risks and complications; and alternatives (and the risks and benefits of such alternatives ), prior to the procedure, with the patient (or the patient's legal patient financial representative). I attest that, if there was a reasonable possibility of needing a blood transfusion, the patient (or the patient's legal patient financial representative) was given the [facility] standardized written summary, pursuant to the Armando Linda Blood Safety Act ([place] Health and Safety Code # 1645, as amended). I attest that I re-evaluated the patient just prior to the surgery and that there has been no change in the patient's H&P, except as documented below: none MARIAMA MEJIAS Aug 14, 2017 08:32
[2017-08-14] MEDS ORDERED: NS Irrig 1000ml ONE (10:00)
[2017-08-14] MEDS ORDERED: Zemuron 50mg/5ml Inj IV ONE (10:00)
[2017-08-14] MEDS ORDERED: fentaNYL 100 mcg/2 mL IV ONE (10:00)
[2017-08-14] MEDS ORDERED: Metoclopramide 10mg/2ml Inj ONE (10:00)
[2017-08-14] MEDS ORDERED: Midazolam 2mg/2ml Inj ONE (10:00)
[2017-08-14] MEDS ORDERED: Glycopyrrolate 0.2mg/ml 1ml Vial ONE (10:00)
[2017-08-14] MEDS ORDERED: LR 1000ml ONE (10:00)
[2017-08-14] MEDS ORDERED: Ketorolac 30mg Inj ONE (10:00)
[2017-08-14] MEDS ORDERED: Sterile Water Irrig 1000ml IRRIG ONE (10:00)
[2017-08-14] MEDS ORDERED: Ampicillin/Sulbactam Sod 3 GM in D5W 110 ML IVPB SCH (12:00)
[2017-08-14] MEDS ORDERED: Bacitracin 50000 Units Vial IRRIG ONE (12:30)
[2017-08-14] MEDS ORDERED: LR 1000ml 1,000 ML IVLG SCH (14:11)
--- NOTE | 2017-08-14 14:11 | Immediate Post-Op Evaluation ---
Immediate Post-Op Evalulation Immediate Post-Op Evalulation Procedure: Laparotomy Revision Mathur Pouch Date of Evaluation: Aug 14, 2017 Time of Evaluation: 15:30 IV Fluids: 1000 Blood Products: 0 Estimated Blood Loss: 20 Urinary Output: 200 Blood Pressure Systolic: 109 Blood Pressure Diastolic: 61 Pulse Rate: 69 Respiratory Rate: 18 O2 Sat by Pulse Oximetry: 99 Temperature (Fahrenheit): 98 Pain Score (1-10): 0 Nausea: No Vomiting: No Patient Status: awake, reacts, patent, extubated, none Hydration Status: adequate Drug: Flagyl Given Within 1 Hr of Incision: Yes Time Given: 12:30 Chano Robert M.D. Aug 14, 2017 14:11
[2017-08-14] MEDS ORDERED: Ketorolac 30mg Inj IV PRN (14:15)
[2017-08-14] MEDS ORDERED: Hydromorphone 0.5mg/0.5ml inj IVP PRN (14:15)
[2017-08-14] MEDS ORDERED: Acetaminophen (Non formulary) 100 ML IV ONE (14:15)
[2017-08-14] MEDS ORDERED: Midazolam 2mg/2ml Inj IVP PRN (14:15)
[2017-08-14] MEDS ORDERED: Morphine Sulfate 4mg/ml Inj SUBQ PRN (15:00)
[2017-08-14] MEDS ORDERED: Naloxone 0.4mg/ml Inj IVP PRN (15:00)
[2017-08-14] MEDS ORDERED: Rate Change PCA 1 Each MISC PRN (15:00)
--- NOTE | 2017-08-14 15:07 | Brief Operative Note ---
Immediate Post Operative Note Operative Note Pre-op Diagnosis: malfunctioning Dueñas pouch with difficulty intubating Procedure: laparotomy revision Dueñas continent ileostomy stoma and access segment; drainage of pelvic fluid Post-op Diagnosis: same Post-op Diagnosis: same as pre-op Findings: consistent w/pre-op dx studies Surgeon: valerio Coin Dealer: abi Anesthesiologist: misha Anesthesia: general Specimen: yes - stoma and access segment Complications: none Condition: stable Fluids: see anesthesia record Estimated Blood Loss: volume - 50ml Drains: other - 28 Menezes to Dueñas pouch; 19mm Marcus drain to pelvis Implant(s) used?: MARIAMA Lindsay Aug 14, 2017 15:07
[2017-08-14] MEDS ORDERED: Bacitracin 50000 Units Vial ONE (15:14)
[2017-08-14] MEDS ORDERED: Acetaminophen 500mg (ES) tab ORAL PRN (15:15)
[2017-08-14] MEDS ORDERED: LORazepam 1mg tab SL PRN ×3 (15:15→21:00)
[2017-08-14] MEDS: D5 1/4NS w/KCl 20mEq 1,000 ML IV SCH (16:00)
[2017-08-14] MEDS ORDERED: PCA Education Pamphlet MISC ONE (16:00)
[2017-08-14] MEDS: PCA Morphine 1mg/ml 30 ML IV PRN ×2 (16:06→21:15)
[2017-08-14] MEDS: Ampicillin/Sulbactam Sod 3 GM in D5W 110 ML IV SCH ×2 (18:18→23:32)
[2017-08-14] MEDS: PCA shift volume MISC SCH (19:00)
--- NOTE | 2017-08-14 22:00 | Operative Note - Dictated ---
DATE OF OPERATION: 08/14/2017 SURGEON: Dago Mancuso M.D. CHIEF METEOROLOGIST SURGEON: Brandin Bates M.D. ANESTHESIOLOGIST: Chano Robert MD TYPE OF ANESTHESIA: General endotracheal. PREOPERATIVE DIAGNOSES: 1. 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 Loculated pelvic fluid. 3. History of ulcerative colitis. 4. 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 POSTOPERATIVE DIAGNOSES: 1. 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 Loculated pelvic fluid. 3. History of ulcerative colitis. 4. 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 OPERATION PERFORMED: Laparotomy with revision of Dueñas continent ileostomy stoma and access segment and evacuation of pelvic fluid. DESCRIPTION OF PROCEDURE: The patient was taken to the operating room and under general endotracheal anesthesia with sequential compression device stockings in place and having received intravenous antibiotics, the patient was prepped and draped in the usual fashion with the stoma initially covered with Tegaderm. Previous midline incision was reopened from just below the umbilicus to the pubis excising the skin scar, but ultimately the incision had to be extended into the lower epigastrium. There were no adhesions to the anterior abdominal wall. There were mild interloop adhesions near the pouch, which were taken down. The pouch was readily elevated out of the pelvis. There was evidence of loculated fluid in the right adnexal area. The peritoneal covering over this was opened and serous fluid evacuated bilaterally. The uterus, tubes and ovaries appeared within normal limits. The patient had previously undergone CT-guided drainage of 400 mL of fluid from the presacral area. Once the pouch was elevated and a 28-Pakistani Menezes placed through the stoma into the pouch, it was clear that there was a redundancy of the access segment approximately 5 cm. A transversely oriented elliptical incision was made around the stoma in the right lower quadrant and the stoma dismantled bringing it into the abdominal cavity with its mesentery. A 28 Menezes was placed into the apex of the pouch and the afferent bowel manually occluded. The pouch was distended with 400 mL of saline. Upon removing the catheter, there was no evidence of any incontinence, which is consistent with the preoperative endoscopy showing a normal nipple valve. The catheter was reintroduced and the pouch decompressed. The collar was slightly loose and was tightened with interrupted 3-0 silk. Now the posterior pouch was sutured to the peritoneum at the stoma site with interrupted 3-0 Vicryl sutures and the access segment brought through the abdominal wall and additional 3-0 Vicryl suture to the peritoneum to the collar anteriorly. The 28-[place]istani Menezes was placed into the pouch. With the access segment on stretch, the mesentery was controlled at the level of the skin by dividing it and ligating with 2-0 Vicryl and then the redundant access segment excised and the stoma primarily matured with continuous 2-0 chromic locking sutures starting at the 3 and 9 o'clock position. A very satisfactory stoma was achieved. Through a separate stab incision in the left lower quadrant, a 19 mm Marcus drain was placed into the deep pelvis behind the uterus and sutured to the skin with 2-0 silk suture and connected to bulb suction. The field was irrigated and hemostasis was secure. The pouch lay nicely across the uterus. There was no indication for gastrostomy. The midline incision was closed in one layer with continuous #1 Prolene starting at both ends and inverting the knots. Throughout the procedure, the abdominal wall was protected with antibiotic soaked lap sponges. Additional antibiotic irrigation was used now and the skin closed with william. Dry sterile dressings were applied. The ileostomy catheter was flushed and connected to a gravity drainage bag. Final sponge and needle counts were correct. The patient tolerated the procedure well and left the operating room in stable condition. Dago Mancuso M.D. DR: LISA JOB#: [id number] CC: SACHI
[2017-08-14] MEDS: Dyna-Hex 2% Top Sol 2oz TOPIC SCH (23:33)
[2017-08-15] VITALS (8 sets, daily range): BP systolic 93–106; BP diastolic 53–68
[2017-08-15] MEDS: D5 1/4NS w/KCl 20mEq 1,000 ML IV SCH ×3 (02:00→20:10)
[2017-08-15 05:16] LABS: HEMATOCRIT 35.7 % (37.0-47.0); HEMOGLOBIN 12.1 G/DL (12.0-16.0); MEAN CORPUSCULAR VOLUME 85 FL (80-99); PLATELET COUNT 279 K/UL (150-450); RED BLOOD COUNT 4.22 M/UL (4.20-5.40); RED CELL DISTRIBUTION WIDTH 11.7 % (11.6-14.8); WHITE BLOOD COUNT 19.1 K/UL (4.8-10.8)
[2017-08-15 05:20] LABS: ANION GAP 4 mmol/L (5-15); BLOOD UREA NITROGEN 6 mg/dL (7-18); CARBON DIOXIDE 30 MMOL/L (21-32); CHLORIDE 104 MMOL/L (98-107); CREATININE 0.7 MG/DL (0.55-1.30); POTASSIUM 3.7 MMOL/L (3.5-5.1); SODIUM 138 MMOL/L (136-145)
[2017-08-15] MEDS: Ampicillin/Sulbactam Sod 3 GM in D5W 110 ML IV SCH ×3 (05:41→18:30)
[2017-08-15] MEDS: PCA Morphine 1mg/ml 30 ML IV PRN (06:39)
[2017-08-15] MEDS: PCA shift volume MISC SCH ×2 (07:15→19:09)
[2017-08-15] MEDS ORDERED: Naloxone 0.4mg/ml Inj IVP PRN (10:47)
--- NOTE | 2017-08-15 10:54 | General Progress Note ---
Progress Note Progress Note AVSS with mild tachycardia. 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 Ileus Atelectasis Nausea Plan; Add Compazine IV to Zofran (no Reglan in pharmacy for IV use) NPO, continue Menezes (pelvic dissection) ambulate f/u labs in AM Increase IV fluids MARIAMA MEJIAS Aug 15, 2017 10:54
[2017-08-15] MEDS ORDERED: Morphine Sulfate 4mg/ml Inj SUBQ PRN (11:00)
[2017-08-15] MEDS ORDERED: Rate Change PCA 1 Each MISC PRN (11:00)
[2017-08-15] MEDS ORDERED: PCA Morphine 1mg/ml 30 ML IV PRN ×2 (11:00→16:00)
[2017-08-15] MEDS ORDERED: Ketorolac 60mg Inj IV ONE (16:00)
[2017-08-15] MEDS ORDERED: Ketorolac 30mg Inj IV PRN (16:00)
[2017-08-15] MEDS: Dyna-Hex 2% Top Sol 2oz TOPIC SCH (20:07)
[2017-08-16] MEDS: Ampicillin/Sulbactam Sod 3 GM in D5W 110 ML IV SCH ×4 (00:02→17:10)
[2017-08-16] MEDS: D5 1/4NS w/KCl 20mEq 1,000 ML IV SCH ×3 (03:36→20:29)
[2017-08-16 04:00] VITALS: BP 98/59
[2017-08-16 05:56] LABS: EOSINOPHILS % (AUTO) 1.8 % (0.0-3.0); HEMATOCRIT 34.7 % (37.0-47.0); HEMOGLOBIN 12.2 G/DL (12.0-16.0); MEAN CORPUSCULAR VOLUME 85 FL (80-99); MONOCYTES % (AUTO) 8.9 % (1.0-10.0); NEUTROPHILS % (AUTO) 82.2 % (45.0-75.0); PLATELET COUNT 250 K/UL (150-450); RED BLOOD COUNT 4.09 M/UL (4.20-5.40); RED CELL DISTRIBUTION WIDTH 11.9 % (11.6-14.8); WHITE BLOOD COUNT 16.2 K/UL (4.8-10.8)
[2017-08-16 06:06] LABS: ANION GAP 4 mmol/L (5-15); BLOOD UREA NITROGEN 1 mg/dL (7-18); CARBON DIOXIDE 30 MMOL/L (21-32); CHLORIDE 107 MMOL/L (98-107); CREATININE 0.7 MG/DL (0.55-1.30); POTASSIUM 3.9 MMOL/L (3.5-5.1); SODIUM 141 MMOL/L (136-145)
[2017-08-16] MEDS: PCA shift volume MISC SCH ×2 (07:21→19:15)
[2017-08-16 08:00] VITALS: BP 102/63
--- NOTE | 2017-08-16 09:25 | General Progress Note ---
Progress Note Progress Note T101. P 109-130 Breathing comfortably but poor IS effort c/o pain in flanks and extremities, not so much abdominal/incisional ? reaction to MS (no Dilaudid BRANCH ASSISTANT available). Still some nausea Abdomen soft, incisions clean, stoma pink. Urine 1999 BCIR fileo 160 BRYANT 55 serosang WBC down 16,200 Hgb 12.2 (stable) BMP - wnl IMp. Ileus Nausea Plan: Toradol 15mg IV q6h prn pain - may increase to 30mg if still needing BRANCH ASSISTANT and getting side-effects Scopolamine patch f/u labs MARIAMA MEJIAS Aug 16, 2017 09:25
[2017-08-16 09:54] LABS: APPEARANCE,URINE CLEAR; BILIRUBIN, URINE NEGATIVE (NEGATIVE); COLOR,URINE PALE YELLOW; GLUCOSE, URINE (UA) NEGATIVE (NEGATIVE); KETONES,URINE NEGATIVE (NEGATIVE); LEUKOCYTE ESTERASE ,URINE NEGATIVE (NEGATIVE); NITRITE,URINE NEGATIVE (NEGATIVE); PH,URINE 6 (4.5-8.0); PROTEIN,URINE NEGATIVE (NEGATIVE); UROBILINOGEN,URINE NORMAL MG/DL (0.0-1.0)
[2017-08-16] MEDS ORDERED: TransDerm Scop 1mg/72HR Patch TDERMAL SCH (10:00)
[2017-08-16] MEDS ORDERED: HYDROmorphone 1mg/ml Carpuject SUBQ PRN (10:00)
[2017-08-16] MEDS ORDERED: PCA Morphine 1mg/ml 30 ML IV PRN (10:00)
[2017-08-16] MEDS ORDERED: Rate Change PCA 1 Each MISC PRN (10:00)
[2017-08-16] MEDS ORDERED: Naloxone 0.4mg/ml Inj IVP PRN (10:00)
[2017-08-16] MEDS ORDERED: Ketorolac 30mg Inj IV PRN (10:00)
[2017-08-16] MEDS ORDERED: Morphine Sulfate 4mg/ml Inj SUBQ PRN (11:00)
[2017-08-16 12:00] VITALS: BP 101/66
[2017-08-16] MEDS ORDERED: Hydromorphone 0.5mg/0.5ml inj SUBQ PRN (13:15)
[2017-08-16] MEDS: Ketorolac 30mg Inj IV PRN (15:13)
[2017-08-16 16:00] VITALS: BP 107/71
[2017-08-16 20:08] VITALS: BP 92/58
[2017-08-16] MEDS: Dyna-Hex 2% Top Sol 2oz TOPIC SCH (20:30)
[2017-08-16] MEDS ORDERED: Pantoprazole Inj IVP ONE (21:00)
[2017-08-17] MEDS: Ampicillin/Sulbactam Sod 3 GM in D5W 110 ML IV SCH ×5 (00:06→23:22)
[2017-08-17 00:55] VITALS: BP 109/79
[2017-08-17] MEDS: D5 1/4NS w/KCl 20mEq 1,000 ML IV SCH ×3 (03:55→15:02)
[2017-08-17 04:39] VITALS: BP 107/67
[2017-08-17 05:11] LABS: BASOPHILS % (AUTO) 0.7 % (0.0-2.0); EOSINOPHILS % (AUTO) 2.7 % (0.0-3.0); HEMATOCRIT 32.9 % (37.0-47.0); HEMOGLOBIN 11.2 G/DL (12.0-16.0); LYMPHOCYTES % (AUTO) 10.2 % (20.0-45.0); MEAN CORPUSCULAR VOLUME 85 FL (80-99); MONOCYTES % (AUTO) 7.2 % (1.0-10.0); NEUTROPHILS % (AUTO) 79.1 % (45.0-75.0); PLATELET COUNT 281 K/UL (150-450); RED CELL DISTRIBUTION WIDTH 11.8 % (11.6-14.8); WHITE BLOOD COUNT 13.2 K/UL (4.8-10.8)
[2017-08-17 05:26] LABS: ALANINE AMINOTRANSFERASE 9 U/L (12-78); ALBUMIN 2.5 G/DL (3.4-5.0); ALBUMIN/GLOBULIN RATIO 0.7 (1.0-2.7); ALKALINE PHOSPHATASE 41 U/L (46-116); ANION GAP 6 mmol/L (5-15); ASPARTATE AMINO TRANSFERASE 13 U/L (15-37); BILIRUBIN,TOTAL 0.5 MG/DL (0.2-1.0); BLOOD UREA NITROGEN 3 mg/dL (7-18); CALCIUM 8.1 MG/DL (8.5-10.1); CARBON DIOXIDE 28 MMOL/L (21-32); CHLORIDE 108 MMOL/L (98-107); CREATININE 0.6 MG/DL (0.55-1.30); POTASSIUM 3.8 MMOL/L (3.5-5.1); SODIUM 142 MMOL/L (136-145)
[2017-08-17 05:53] LABS: % IRON SATURATION 6 % (15-50); IRON 11 ug/dL (50-175); TOTAL IRON BINDING CAPACITY 173 ug/dL (250-450)
[2017-08-17] MEDS: PCA shift volume MISC SCH ×2 (07:10→19:19)
[2017-08-17 08:00] VITALS: BP 100/61
--- NOTE | 2017-08-17 08:47 | General Progress Note ---
Progress Note Progress Note Afebrile since 101.1 0800 yesterday. Ambulated yesterday. c/o nausea, dry heaves , reflux. Has not been given meds Also c/o cramping Abdomen mild soft distention, incision clean, stoma pink. Perineum - no drainage or bleeding evident Urine 3025 BCIR ileo - small amount enteric fluid BRYANT drain 41cc WBC down 13,200 Hgb 11.2 BMP - wnl Irofn 11 (50-175) B12 416 (193-986) Folate - wnl Albumin 2.5 Imp. Ileus Anemia with iron deficiency and low normal B12 level Plan: Protonix IV, mylanta po, Toradol IV, Phenergan IV continue npo, Riri (diuresing) B12 1000mcg IM x 1 Venofer 100mg IV x 5 days f/u labs MARIAMA MEJIAS Aug 17, 2017 08:47
[2017-08-17] MEDS: Ketorolac 30mg Inj IV PRN (08:50)
[2017-08-17] MEDS ORDERED: Pantoprazole Inj IVP SCH (09:00)
[2017-08-17] MEDS ORDERED: PCA Morphine 1mg/ml 30 ML IV PRN (09:00)
[2017-08-17] MEDS ORDERED: Naloxone 0.4mg/ml Inj IVP PRN (09:00)
[2017-08-17] MEDS ORDERED: Rate Change PCA 1 Each MISC PRN (09:00)
[2017-08-17] MEDS ORDERED: Vitamin B12 1000mcg/ml Inj IM ONE (09:15)
[2017-08-17] MEDS ORDERED: NS 500ML ONE (10:13)
[2017-08-17 11:28] VITALS: BP 110/77
[2017-08-17 16:47] VITALS: BP 105/67
[2017-08-17 19:54] VITALS: BP 120/79
[2017-08-17] MEDS: Dyna-Hex 2% Top Sol 2oz TOPIC SCH (20:47)
[2017-08-17] MEDS: Iron Sucrose 100 MG in NS 110 ML IV SCH (20:47)
[2017-08-18 00:26] VITALS: BP 101/68
[2017-08-18] MEDS: D5 1/4NS w/KCl 20mEq 1,000 ML IV SCH ×2 (02:21→09:19)
[2017-08-18 04:30] VITALS: BP 99/67
[2017-08-18] MEDS: Ampicillin/Sulbactam Sod 3 GM in D5W 110 ML IV SCH (05:29)
[2017-08-18 05:50] LABS: BASOPHILS % (AUTO) 1.5 % (0.0-2.0); EOSINOPHILS % (AUTO) 8.4 % (0.0-3.0); HEMOGLOBIN 10.9 G/DL (12.0-16.0); LYMPHOCYTES % (AUTO) 21.1 % (20.0-45.0); MEAN CORPUSCULAR VOLUME 85 FL (80-99); MONOCYTES % (AUTO) 8.6 % (1.0-10.0); NEUTROPHILS % (AUTO) 60.3 % (45.0-75.0); PLATELET COUNT 339 K/UL (150-450); RED BLOOD COUNT 3.88 M/UL (4.20-5.40); RED CELL DISTRIBUTION WIDTH 11.9 % (11.6-14.8); WHITE BLOOD COUNT 10.1 K/UL (4.8-10.8)
[2017-08-18 06:13] LABS: BLOOD UREA NITROGEN 5 mg/dL (7-18); CALCIUM 8.6 MG/DL (8.5-10.1); CARBON DIOXIDE 27 MMOL/L (21-32); CREATININE 0.6 MG/DL (0.55-1.30)
[2017-08-18] MEDS: PCA shift volume MISC SCH (07:18)
[2017-08-18 07:45] LABS: CHLORIDE 107 MMOL/L (98-107); POTASSIUM 3.7 MMOL/L (3.5-5.1); SODIUM 141 MMOL/L (136-145)
[2017-08-18 07:46] LABS: ANION GAP 7 mmol/L (5-15)
[2017-08-18 08:00] VITALS: BP 110/66
--- NOTE | 2017-08-18 08:32 | General Progress Note ---
Progress Note Progress Note AVSS Feeling well this AM with good volume ileostomy effluent. All prior symptoms resolved Abdomen soft, healing nicely Urine 2300 BCIR ileo 940 BRYANT drain 40cc WBC 10,100 Hgb 10.9 (getrting Antoine) BMP - wnl Imp. Ileus resolved Plan: Clear liquid diet d/c Menezes and antibiotics and FRUIT SHIPPER; decrease IV fluids continue MARIAMA Garcia Aug 18, 2017 08:32
[2017-08-18] MEDS: Ketorolac 30mg Inj IV PRN ×2 (09:39→16:41)
[2017-08-18] MEDS ORDERED: Silver Nitrate Stick TOPIC PRN (10:00)
[2017-08-18 12:00] VITALS: BP 106/65
[2017-08-18 16:00] VITALS: BP 116/81
[2017-08-18 20:19] VITALS: BP 102/70
[2017-08-18] MEDS: Dyna-Hex 2% Top Sol 2oz TOPIC SCH (20:30)
[2017-08-18] MEDS: Iron Sucrose 100 MG in NS 110 ML IV SCH (20:55)
[2017-08-19] VITALS: BP 109/64
[2017-08-19] MEDS: Ketorolac 30mg Inj IV PRN ×3 (02:49→23:51)
[2017-08-19 04:00] VITALS: BP 99/61
[2017-08-19] MEDS: D5 1/4NS w/KCl 20mEq 1,000 ML IV SCH (05:02)
[2017-08-19 08:00] VITALS: BP 108/74
--- NOTE | 2017-08-19 08:27 | General Progress Note ---
Progress Note Progress Note AVSS Voiding without Menezes. tolerated clear liquid diet. Early menses - intermittent Abdomen soft, healing well, ecchymosis above stoma Urine 1400 BCIR ileo 1240 BRYANT drain 27.5 Imp. Improving Plan: Full liquid diet continue IV fluids and Venofer labs in MARIAMA MOTA Aug 19, 2017 08:27
[2017-08-19] MEDS ORDERED: Norco 5mg/325mg tab ORAL PRN (08:30)
[2017-08-19] MEDS ORDERED: LORazepam 1mg tab SL PRN ×2 (09:00→21:00)
[2017-08-19 12:00] VITALS: BP 117/72
[2017-08-19 16:00] VITALS: BP 102/60
[2017-08-19 20:00] VITALS: BP 107/65
[2017-08-19] MEDS: Dyna-Hex 2% Top Sol 2oz TOPIC SCH (20:16)
[2017-08-19] MEDS: Iron Sucrose 100 MG in NS 110 ML IV SCH (21:12)
[2017-08-20] VITALS: BP 97/58
[2017-08-20] MEDS: D5 1/4NS w/KCl 20mEq 1,000 ML IV SCH (00:26)
[2017-08-20 04:46] LABS: BASOPHILS % (AUTO) 1.9 % (0.0-2.0); HEMATOCRIT 32.7 % (37.0-47.0); LYMPHOCYTES % (AUTO) 27.7 % (20.0-45.0); MEAN CORPUSCULAR VOLUME 84 FL (80-99); MONOCYTES % (AUTO) 10.4 % (1.0-10.0); PLATELET COUNT 386 K/UL (150-450); RED CELL DISTRIBUTION WIDTH 11.5 % (11.6-14.8); WHITE BLOOD COUNT 9.1 K/UL (4.8-10.8)
[2017-08-20 04:58] LABS: ANION GAP 6 mmol/L (5-15); BLOOD UREA NITROGEN 7 mg/dL (7-18); CALCIUM 8.6 MG/DL (8.5-10.1); CARBON DIOXIDE 26 MMOL/L (21-32); CHLORIDE 105 MMOL/L (98-107); CREATININE 0.5 MG/DL (0.55-1.30); POTASSIUM 3.9 MMOL/L (3.5-5.1); SODIUM 137 MMOL/L (136-145)
[2017-08-20 05:00] VITALS: BP 99/68
[2017-08-20] MEDS: Ketorolac 30mg Inj IV PRN ×2 (07:27→18:43)
[2017-08-20 07:49] VITALS: BP 106/70
--- NOTE | 2017-08-20 08:24 | General Progress Note ---
Progress Note Progress Note AVSS c/o severe lower abdominal/pelvic pain with ambulation but minimal when in bed. tolerated full liquid diet Abdomen soft, non-tender, healing nicely Urine 2200 BCIR ileo 540 BRYANT drain 28 WBC 9100 Hgb 11 BMP - wnl Imp. Slowly improving Plan: BCIR low residue diet May need CT scan abd+pelvis if symptoms persist or worsen Maintain continuous drainage of Dueñas Continent Ileostomy MARIAMA MEJIAS Aug 20, 2017 08:24
[2017-08-20 12:00] VITALS: BP 111/64
[2017-08-20 16:00] VITALS: BP 106/69
[2017-08-20] MEDS: oxyCODONE HCL/Acetaminophen 5/325mg ORAL PRN (16:17)
[2017-08-20 20:00] VITALS: BP 106/69
[2017-08-20] MEDS: Dyna-Hex 2% Top Sol 2oz TOPIC SCH (20:36)
[2017-08-20] MEDS: Iron Sucrose 100 MG in NS 110 ML IV SCH (20:36)
[2017-08-20] MEDS ORDERED: Tubing IV Secondary IV ONE (21:23)
[2017-08-21] VITALS: BP 103/66
[2017-08-21 04:00] VITALS: BP 96/57
[2017-08-21] MEDS: Ketorolac 30mg Inj IV PRN ×2 (04:27→15:28)
[2017-08-21 08:00] VITALS: BP 95/56
--- NOTE | 2017-08-21 08:20 | General Progress Note ---
Progress Note Progress Note AVSS Continue pelvic pain from hip to hip requiring intermittent Percocet. Tolerated BCIR diet 75% of meals Abdomen soft, healing nicely Perineum - healed, no opening evident Urine 1700 BCIR ileo 510 BRYANT 30 - removed Imp. Pelvic/lower abdominal pain ? etiology Plan: STAT CT scan abd+pelvis with oral and IV contrast IV fluids until scan completed MARIAMA MEJIAS Aug 21, 2017 08:20
[2017-08-21] MEDS ORDERED: D5 1/2NS w/KCl 20mEq 1,000 ML IV SCH (08:30)
--- NOTE | 2017-08-21 11:34 | Diagnostic Imaging Report ---
Reason For Exam: ABD PAIN; status post revision of continent ileostomy Technique: CT of the abdomen and pelvis utilizing automated exposure control with intravenous contrast. Venous scanning performed. Oral contrast was also administered. CT dose: Total DLP 674.62 mGycm; CTDI vol 13.88 mGy Comparison: 08/10/2017 and 02/27/2017 Findings: Lung bases are clear. Heart size is within normal limits. No pericardial effusion. No focal liver lesion is appreciated on this single phase study. The liver contour is smooth. Hepatic veins and portal veins appear patent. The gallbladder is contracted but otherwise unremarkable. No intrahepatic or extrahepatic biliary duct dilatation. Spleen, adrenal glands and pancreas unremarkable. Kidneys enhance symmetrically. No evidence of hydronephrosis bilaterally. Bladder unremarkable. Fluid attenuation noted within the uterus, unchanged. Patient again noted to be status post colectomy and creation of a continent ostomy, with recent ostomy revision. Midline surgical scar and overlying surgical william noted. There is no evidence of bowel obstruction. There is limited evaluation of structures in the pelvis as oral contrast has not traversed distally in the small bowel at the time of scanning. There is some small foci of likely extraluminal air, possibly related to recent surgical intervention. The large fluid collections of the pelvis of significantly reduced however there are some residual loculated fluid collections in the pelvis. For example small fluid collection anterior to the sacrum measures 3.1 x 1.1 cm. (Series 3 image #69) and a collection just above and to the right of the bladder measures approximately 4 cm in diameter and contains a small focus of air (series 3 image #72). Difficult to delineate the adnexal structures from the fluid collection. Recommend delayed scanning of the pelvis after further transit of oral contrast for better evaluation. No acute osseous abnormality seen. IMPRESSION: Limited evaluation of pelvic structures given oral contrast still in the proximal small bowel at time of scanning. Interval revision of continent ostomy. Possible small foci of extraluminal air in the pelvis likely related to recent surgery. Significant interval reduction of previously seen pelvic fluid collections with small residual collections in the pelvis. Difficult to differentiate these from adnexal structures are possibly unopacified loops of bowel. Recommend repeat scanning of the pelvis in 1-2 hours, at which point oral contrast may have progressed into the more distal small bowel loops. Addendum will be issued to this report at that time. The CT scanner at [facility] is accredited by the [employer] and the scans are performed using protocols designed to limit radiation exposure to as low as reasonably achievable to attain images of sufficient resolution adequate for diagnostic evaluation.
[2017-08-21 11:39] VITALS: BP 106/69
[2017-08-21] MEDS: Ascorbic Acid 500mg tab ORAL PRN (12:02)
[2017-08-21 16:00] VITALS: BP 103/65
[2017-08-21 20:00] VITALS: BP 121/73
[2017-08-21] MEDS: Dyna-Hex 2% Top Sol 2oz TOPIC SCH (21:01)
[2017-08-21] MEDS: Iron Sucrose 100 MG in NS 110 ML IV SCH (21:01)
[2017-08-22] VITALS: BP 96/59
[2017-08-22 04:00] VITALS: BP 94/57
[2017-08-22] MEDS: Ketorolac 30mg Inj IV PRN (05:41)
[2017-08-22 08:00] VITALS: BP 109/66
[2017-08-22 12:00] VITALS: BP 99/68
--- NOTE | 2017-08-22 13:22 | General Progress Note ---
Progress Note Progress Note Surgery: (covering for Dr. Mancuso) No acute events. States that she is feeling well. Pelvic pain present when ambulatory but feels as if pain improved. tolerating 75% of diet. no n/v/f/c. Afebrile, HD stable, no labs. Abdomen soft, non tender, non distended, midline wound c/d/i, prior drain site clean and dry, ostomy viable with drainage catheter. CT scan reviewed and seems to have small residual fluid collections that are significantly smaller than prior. possibly related to adnexal structures. Oral intake - 1645 Urine output - 1440 Ostomy Output - 560 Imp: recovering; pain improving Plan: Diet as tolerated Possible removal of ileo catheter tomorrow and start self intubation. will discuss with Dr. Mancuso about shower. Brandin Bates Aug 22, 2017 13:22
[2017-08-22 16:00] VITALS: BP 111/67
[2017-08-22] MEDS: Dyna-Hex 2% Top Sol 2oz TOPIC SCH (19:50)
[2017-08-22] MEDS: oxyCODONE HCL/Acetaminophen 5/325mg ORAL PRN (19:50)
[2017-08-22 20:00] VITALS: BP 104/69
[2017-08-22] MEDS: Iron Sucrose 100 MG in NS 110 ML IV SCH (21:08)
[2017-08-23] VITALS: BP 97/58
[2017-08-23 04:00] VITALS: BP 98/56
[2017-08-23] MEDS: oxyCODONE HCL/Acetaminophen 5/325mg ORAL PRN ×3 (06:04→23:03)
[2017-08-23 08:00] VITALS: BP 100/63
--- NOTE | 2017-08-23 09:59 | General Progress Note ---
Progress Note Progress Note AVSS Doing well with BCIR diet. CT scan revealed small amount residual pelvic fluid but much improved. Pain across lower abdomen/pelvis is much improved Abdomen soft. Durand removed and steri-strips applied BCIR ileo catheter removed - reinserts readily Urine 2600 BCIR ileo 670 (eating 75% of meals) Imp: Improved Plan: Begin RN supervised BCIR self-intubation q3h am to hs and prn; prn overnight Venofer 200mg IV tonight then remove PIC line Anticipate discharge tomorrow if does well with self-intubations MARIAMA MEJIAS Aug 23, 2017 09:59
[2017-08-23 12:00] VITALS: BP 98/61
[2017-08-23 16:00] VITALS: BP 103/60
[2017-08-23] MEDS: Ascorbic Acid 500mg tab ORAL PRN (19:24)
[2017-08-23 20:00] VITALS: BP 101/59
[2017-08-23] MEDS: Dyna-Hex 2% Top Sol 2oz TOPIC SCH (20:26)
[2017-08-23] MEDS ORDERED: Iron Sucrose 200 MG in NS 110 ML IV SCH (21:00)
[2017-08-24 05:00] VITALS: BP 97/63
[2017-08-24] MEDS: oxyCODONE HCL/Acetaminophen 5/325mg ORAL PRN ×2 (07:12→17:30)
[2017-08-24 08:00] VITALS: BP 100/60
[2017-08-24] MEDS ORDERED: Simethicone 80mg tab ORAL STA (09:57)
[2017-08-24] MEDS ORDERED: Simethicone 80mg tab ORAL PRN (10:00)
[2017-08-24] MEDS: Ascorbic Acid 500mg tab ORAL PRN ×2 (10:10→17:29)
--- NOTE | 2017-08-24 10:12 | General Progress Note ---
Progress Note Progress Note AVSS Able to intubate her Dueñas Pouch without difficulty. Output is thick and low volume with c/o abdominal gas. Likely due to side effect of Percocet Abdomen soft, well healed, stoma healing nicely Urine 2200 BCIR ileo 290 Imp: doing well Plan: discharge with full supplies/limitations/instructions provided/discussed Rx Percocet 5/325 #30 f/u office call 08/29/17 and prn Vitamin C 500mg with each meal to thin effluent MARIAMA MEJIAS Aug 24, 2017 10:12
[2017-08-24 12:00] VITALS: BP 97/64
[2017-08-24 16:00] VITALS: BP 105/72
[2017-08-24] MEDS ORDERED: OXYCODONE-ACET1 EAC3 ORAL (17:10)
[2017-08-24] MEDS ORDERED: NS 500ML ONE ×2 (20:09)
[2017-08-24] MEDS ORDERED: NS Irrig 1000ml ONE (20:09)
[2017-08-24] MEDS ORDERED: Tubing IV Secondary IV ONE ×2 (20:09)
== END 2017-08-24 20:10 | disposition home or self-care (01) | DRG 330 ==
LOC: EMR 23:35 → 3E 08-10 00:17 → EDBEDREQ 08-10 00:29
DX: K94.13 Enterostomy malfunction (principal); K56.7 Ileus, unspecified; J98.11 Atelectasis; F41.9 Anxiety disorder, unspecified; D50.9 Iron deficiency anemia, unspecified; R11.0 Nausea
CPT/HCPCS: 36415; 36569; 74177; 75989; 76937; 80048; 80053; 81001; 81003; 81025; 82248; 82607; 82746; 83540; 83550; 84703; 85007; 85025; 85610; 87040; 87070; 87075; 87086; 87205; 94003; 94150; 94760; 99285; J2250; J2405; J2765